=== PATIENT | male | born 1945 | race Caucasian/White ===

== ENCOUNTER 2024-06-09 21:23 | Inpatient (IN) | payer OTHER ==
--- NOTE | 2024-06-09 22:09 | RAD REPORT ---
EXAMINATION: ONE VIEW CHEST XR CLINICAL INDICATION: near syncope;SOB TECHNIQUE: Frontal chest projection is submitted. Examination is limited by patient positioning and t echnique. COMPARISON: No prior exam. FINDINGS: The lungs are well inflated and clear. The heart is upper limit of normal in size. No displaced fract ures identified. Cervical hardware plate. IMPRESSION: No acute intrathoracic abnormalities.
[2024-06-09] MEDS ORDERED: NA CHLORIDE 0.9% 500 ML ONE ×2 (22:12→23:01)
[2024-06-09 23:42] LABS: Absolute Eosinophils 0.2 K/uL (0-0.5); Absolute Lymphocytes (CBC) 0.5 K/uL (0.7-4.9); Absolute Monocytes 0.6 K/uL (0.1-1.3); Absolute Neutrophil 6.1 K/uL (1.8-8.0); Basophils % 0.5 % (0-1.3); Eosinophils % 2.2 % (0-4.4); Hematocrit 38.9 % (39.6-49.0); Lymphocytes % 6.8 % (15.3-44.8); MCH 31.4 pg (27.0-35.0); MCHC 33.5 g/dL (32.0-36.0); MCV 93.7 fL (80-100); MPV 8.6 fL (7.6-11.3); Neutrophils % 82.5 % (41.7-73.7); Nucleated Red Blood Cells % 0.2 % (0-0); Platelets 178 thou/uL (152-406); RBC Red Blood Cell Count 4.15 M/uL (4.33-5.43); Red Cell Distribution Width 15.4 % (12.1-15.2)
[2024-06-09 23:43] LABS: PT Prothrombin Time 14.6 SECONDS (9.4-12.5); Protime INR 1.31
[2024-06-10 01:19] LABS: AST/SGOT 13 U/L (15-37); Albumin 2.9 g/dL (3.4-5.0); Albumin/Globulin Ratio 0.9 (1.1-1.8); Alkaline Phosphatase 112 U/L (45-117); BUN Blood Urea Nitrogen 26 mg/dL (7-18); Bicarbonate 23 mEq/L (21-32); Bilirubin Direct 0.3 mg/dL (0-0.2); Bilirubin Indirect, Calculated 1.5 mg/dL (0.2-0.8); Bilirubin Total 1.8 mg/dL (0.2-1.0); Globulin 3.2 g/dL (2.3-3.5); Glomerular Filtration Rate 48 ml/min (=/>90); Glucose Level 239 mg/dL (74-106); NT PRO-BNP 1795 pg/mL (<450); Protein, Total 6.1 g/dL (6.4-8.2); Sodium Level 136 mEq/L (136-145); Troponin High Sensitivity 12.9 pg/mL (<58.9)
[2024-06-10 01:21] LABS: Renal Epithelial <5 /HPF (None Seen); Specific Gravity > 1.030 (1.005-1.030); Sqamous Epithelial None Seen /HPF (None Seen); Urine Bacteria None Seen /HPF (<20); Urine Bilirubin NEGATIVE (Negative); Urine Blood Trace (Negative); Urine Clarity Clear (Clear); Urine Color Light-Yellow (Yellow); Urine Culture Reflex Order NOT NEEDED; Urine Glucose 4+ (Over) (Negative); Urine Ketones NEGATIVE (Negative); Urine Microscopic Reflex YN ORDER UMIC; Urine Nitrite NEGATIVE (Negative); Urine Protein NEGATIVE (Negative); Urine RBC <5 /HPF (None Seen); Urine Urobilinogen Normal (Normal)
[2024-06-10 01:21] LABS: ALT/SGPT < 14 U/L (16-61)
--- NOTE | 2024-06-10 03:11 | RAD REPORT ---
EXAM: CT Head Without Intravenous Contrast CLINICAL HISTORY: Near syncope. TECHNIQUE: Axial computed tomography images of the head/brain without intravenous contrast. Sagittal and coron al reformatted images were created and reviewed. This CT exam was performed using one or more of the following dose reduction techniques: automated exposure control, adjustment of the mA and/or kV according to patient size, and/or use of iterative reconstruction technique. COMPARISON: No relevant prior studies available. FINDINGS: Brain: Mild to moderate cerebral atrophy and bilateral periventricular and subcortical white matter low attenuation most compatible with chronic microvascular angiopathy. No hemorrhage. Ventricles: Unremarkable. No ventriculomegaly. Bones/joints: Unremarkable. No acute fracture. Soft tissues: Unremarkable. Vasculature: There is atherosclerotic disease of the internal carotid arteries bilaterally. Sinuses: Unremarkable as visualized. No acute sinusitis. Mastoid air cells: Unremarkable as visualized. No mastoid effusion. IMPRESSION: 1. No acute intracranial or extra-axial abnormality. 2. Other findings as above. Electronically signed by: Ankit Dave MD 06/10/2024 02:44 AM [facility] Due to temporary technical issues with the PACS/YES.TAP reporting system, reports are being rosa d by the in-house radiologist without review as a courtesy to ensure prompt reporting the interpreting radiologist is fully responsible for the content of the report. Transcribed Date/Time: 06/10/2024 3:11 AM
--- NOTE | 2024-06-10 03:12 | RAD REPORT ---
EXAM: CT Chest Without Intravenous Contrast CLINICAL HISTORY: Near syncope, shortness of breath. TECHNIQUE: Axial computed tomography images of the chest without intravenous contrast. Sagittal and coronal re formatted images were created and reviewed. This CT exam was performed using one or more of the following dose reduction techniques: automated exposure control, adjustment of the mA and/or kV acc ording to patient size, and/or use of iterative reconstruction technique. COMPARISON: CTA Chest 06/07/2024. FINDINGS: Lungs: Unremarkable. No mass. No consolidation. Pleural space: Unremarkable. No pneumothorax. No significant effusion. Heart: The heart is mildly enlarged. Coronary artery calcification. No significant pericardial ef fusion. Bones/joints: Multilevel spondylosis. Lower cervical anterior fusion hardware. Partially visualized bilateral posterior fusion hardware at L2. Contiguous flowing ossification involving multiple consecutive vertebral bodies which can be seen in the setting of DISH. No acute fracture. No disl ocation. Soft tissues: Unremarkable. Vasculature: Mild atherosclerotic disease. No thoracic aortic aneurysm. Lymph nodes: Unremarkable. No enlarged lymph nodes. Liver: Subcentimeter left hepatic hypodensity which is too small to characterize. Gallbladder and bile ducts: Numerous tiny gallstones. No gallbladder wall thickening or pericholecy stic fluid. IMPRESSION: 1. No acute disease. 2. Other findings as above. Electronically signed by: Ankit Dave MD 06/10/2024 02:48 AM [facility] Due to temporary technical issues with the PACS/[employer] reporting system, reports are being rosa d by the in-house radiologist without review as a courtesy to ensure prompt reporting the interpreting radiologist is fully responsible for the content of the report. Transcribed Date/Time: 06/10/2024 3:11 AM
--- NOTE | 2024-06-10 06:22 | ER ---
Nurse's Notes [facility] Name: Sekou Couch Age: 78 yrs Sex: Male : 1945 Arrival Date: 06/09/2024 Time: 21:23 Bed 2 Private MD: Diagnosis: Dyspnea on exertion, Congestive Heart failure with exacerbation, Near syncope Presentation: 06/09 21:52 Chief complaint: sister states patient was discharged from [facility] today after an vc1 angiogram. Pt has had SOB for a few months that continue to get worse. When arriving at home he became more short of breath and almost passed out. His rectifying attendant states he needs to be seen by his hop worker, Dr. Leiva. Coronavirus screen: Client denies travel out of the [place] in the last 14 days. difficulty breathing, shortness of breath, Client presents with at least one sign or symptom that may indicate coronavirus-19. Ebola Screen: Patient negative for fever greater than or equal to 101.5 degrees Fahrenheit, and additional compatible Ebola Virus Disease symptoms Patient denies exposure to infectious person. Patient denies travel to an Ebola-affected area in the 21 days before illness onset. No symptoms or risks identified at this time. Initial Sepsis Screen: Does the patient meet any 2 criteria? No. Patient's initial sepsis screen is negative. Does the patient have a suspected source of infection? No. Patient's initial sepsis screen is negative. Risk Assessment: Do you want to hurt yourself or someone else? Patient reports no desire to harm self or others. Onset of symptoms was June 09, 2024. Care prior to arrival: None. Activity prior to arrival: near syncope. Mechanism of Injury: No Mechanism of Injury. Transition of care: patient was not received from another setting of care. 21:52 Method Of Arrival: Wheelchair vc1 21:52 Acuity: TOMASA 3 vc1 Triage Assessment: 22:05 General: Appears in no apparent distress. comfortable, Behavior is calm, cooperative, vc1 appropriate for age. Pain: Denies pain. EENT: No deficits noted. No signs and/or symptoms were reported regarding the EENT system. Neuro: Level of Consciousness is awake, alert, obeys commands, Oriented to person, place, time, situation, Appropriate for age. Cardiovascular: Capillary refill < 3 seconds Patient's skin is warm and dry. Respiratory: Reports shortness of breath at rest Onset: The symptoms/episode began/occurred few months, the patient has mild shortness of breath. GI: No deficits noted. No signs and/or symptoms were reported involving the gastrointestinal system. : No deficits noted. No signs and/or symptoms were reported regarding the genitourinary system. Derm: Skin is intact, is healthy with good turgor, Skin is dry, Skin is normal, Skin temperature is warm. Musculoskeletal: Circulation, motion, and sensation intact. Range of motion: intact in all extremities. Historical: - Allergies: 21:57 Sulfa (Sulfonamide Antibiotics); vc1 21:57 PENICILLINS; vc1 21:57 Fentanyl (Vomiting); vc1 - Home Meds: 21:57 metoprolol succinate 50 mg oral Tablet, Extended Release 24 hr [Active]; glimepiride 4 vc1 mg Oral tablet [Active]; spironolactone 25 mg Oral tablet [Active]; furosemide 40 mg Oral tablet [Active]; Januvia 100 mg oral tablet [Active]; Xarelto oral 25 mg tablet [Active]; Jardiance 25 mg oral tablet [Active]; isosorbide mononitrate 30 mg Oral Tablet, Extended Release 24 hr [Active]; atorvastatin 40 mg oral tablet [Active]; - PMHx: 21:57 Diabetes mellitus; Congestive heart failure; Hypercholesterolemia; vc1 - PSHx: 21:57 None; vc1 - Immunization history:: Client reports receiving the 2nd dose of the Covid vaccine, Flu vaccine is up to date. - Infectious Disease History:: Denies. - Social history:: Smoking status: Patient denies any tobacco usage or history of. Screenin:06 [facility] ED Fall Risk Assessment (Adult) History of falling in the last 3 months, vc1 including since admission No falls in past 3 months (0 pts) Confusion or Disorientation No (0 pts) Intoxicated or Sedated No (0 pts) Impaired Gait No (0 pts) Mobility Assist Device Used No (0 pt) Altered Elimination No (0 pt) Score/Fall Risk Level 0 - 2 = Low Risk Oriented to surroundings, Maintained a safe environment, Educated pt \T\ family on fall prevention, incl call for assistance when getting out of bed. Abuse screen: Denies threats or abuse. Nutritional screening: No deficits noted. Tuberculosis screening: No symptoms or risk factors identified. Assessment: 22:18 General: Appears in no apparent distress. Behavior is calm, cooperative. Pain: Denies al5 pain. Neuro: Level of Consciousness is awake, alert, obeys commands, Oriented to person, place, time, situation. Cardiovascular: Capillary refill < 3 seconds Patient's skin is warm and dry. Rhythm is atrial fibrillation. Respiratory: Airway is patent Respiratory effort is even, unlabored, Respiratory pattern is regular, symmetrical, Breath sounds are clear. Respiratory: Reports shortness of breath on exertion. GI: No signs and/or symptoms were reported involving the gastrointestinal system. : No signs and/or symptoms were reported regarding the genitourinary system. EENT: No signs and/or symptoms were reported regarding the EENT system. Derm: Skin is intact, Skin is pink, warm \T\ dry. normal. Musculoskeletal: No signs and/or symptoms reported regarding the musculoskeletal system. 23:24 Reassessment: Patient appears in no apparent distress at this time. No changes from al5 previously documented assessment. Patient and/or family updated on plan of care and expected duration. Pain level reassessed. Patient is alert, oriented x 3, equal unlabored respirations, skin warm/dry/pink. 06/10 01:20 Reassessment: Patient appears in no apparent distress at this time. No changes from al5 previously documented assessment. Patient and/or family updated on plan of care and expected duration. Pain level reassessed. Patient is alert, oriented x 3, equal unlabored respirations, skin warm/dry/pink. states he is no longer feeling short of breath, but states he is not sure about if he gets up if he will feel the same way. 02:47 Reassessment: Patient appears in no apparent distress at this time. No changes from al5 previously documented assessment. Patient and/or family updated on plan of care and expected duration. Pain level reassessed. Patient is alert, oriented x 3, equal unlabored respirations, skin warm/dry/pink. 04:02 Reassessment: Patient appears in no apparent distress at this time. No changes from al5 previously documented assessment. Patient and/or family updated on plan of care and expected duration. Pain level reassessed. Patient is alert, oriented x 3, equal unlabored respirations, skin warm/dry/pink. 05:26 Reassessment: Patient appears in no apparent distress at this time. No changes from al5 previously documented assessment. Patient and/or family updated on plan of care and expected duration. Pain level reassessed. Patient is alert, oriented x 3, equal unlabored respirations, skin warm/dry/pink. 06:32 Reassessment: Patient appears in no apparent distress at this time. No changes from al5 previously documented assessment. Patient and/or family updated on plan of care and expected duration. Pain level reassessed. Patient is alert, oriented x 3, equal unlabored respirations, skin warm/dry/pink. Vital Signs: 06/09 21:30 BP 99 / 69; Pulse 79; Resp 15; Pulse Ox 99% on R/A; al5 21:45 BP 104 / 53; Pulse 77; Resp 15; Pulse Ox 98% on R/A; al5 21:52 BP 113 / 74; Pulse 68; Resp 13; Temp 97.5; Pulse Ox 100% ; Weight 108.41 kg; Height 6 vc1 ft. 0 in. ; Pain 0/10; 22:00 BP 88 / 42; Pulse 69; Resp 16; Pulse Ox 99% on R/A; al5 22:50 BP 95 / 48; Pulse 62; Resp 16; Pulse Ox 100% on R/A; al5 23:15 BP 109 / 68; Pulse 61; Resp 16; Pulse Ox 99% ; dd2 23:30 BP 128 / 65; Pulse 62; Resp 17; Pulse Ox 100% on R/A; al5 06/10 00:00 BP 108 / 61; Pulse 58; Resp 17; Pulse Ox 100% on R/A; al5 00:23 BP 112 / 64; Pulse 67; Resp 16; Pulse Ox 99% ; dd2 00:30 BP 117 / 67; Pulse 52; Resp 19; Pulse Ox 99% on R/A; al5 00:45 BP 116 / 72; Pulse 60; Resp 13; Pulse Ox 99% on R/A; al5 01:00 BP 118 / 67; Pulse 60; Resp 13; Pulse Ox 100% on R/A; al5 01:15 BP 120 / 66; Pulse 57; Resp 14; Pulse Ox 99% on R/A; al5 01:30 BP 114 / 64; Pulse 59; Resp 16; Pulse Ox 100% on R/A; al5 01:45 BP 126 / 64; Pulse 50; Resp 19; Pulse Ox 98% on R/A; al5 02:48 BP 134 / 72; Pulse 51; Resp 17; Pulse Ox 98% on R/A; al5 03:00 BP 134 / 72; Pulse 54; Resp 19; Pulse Ox 99% on R/A; al5 03:30 BP 104 / 65; Pulse 58; Resp 13; Pulse Ox 100% on R/A; al5 04:00 BP 116 / 70; Pulse 56; Resp 17; Pulse Ox 99% on R/A; al5 04:30 BP 122 / 65; Pulse 52; Resp 15; Pulse Ox 99% on R/A; al5 05:00 BP 123 / 66; Pulse 50; Resp 18; Pulse Ox 98% on R/A; al5 05:30 BP 112 / 62; Pulse 57; Resp 14; Pulse Ox 100% on R/A; al5 06:00 BP 117 / 55; Pulse 50; Resp 18; Pulse Ox 100% on R/A; al5 06/09 21:52 Body Mass Index 32.41 (108.41 kg, 182.88 cm) vc1 21:52 Pain Scale: Adult vc1 [place] Coma Score: 06:22 Eye Response: spontaneous(4). Motor Response: obeys commands(6). Verbal Response: sp4 oriented(5). Total: 15. ED Course: 06/09 21:30 Patient arrived in ED. ra3 21:34 Marcos Del Cid PA is PHCP. cp 21:34 Andrew Banuelos MD is Attending Physician. cp 21:50 No provider procedures requiring assistance completed. Missed attempt(s): 22 gauge in al5 right antecubital area. 21:53 Inserted saline lock: 22 gauge in right forearm, using aseptic technique. Flushed with al5 10 mL NS. 21:57 Triage completed. vc1 22:04 XRAY Chest (1 view) In Process Unspecified. EDMS 22:04 Arm band placed on right wrist. vc1 22:05 Merly Moss, ROOPA is Primary Nurse. al5 22:06 Patient has correct armband on for positive identification. Placed in gown. Bed in low vc1 position. Call light in reach. external auditor on. Pulse ox on. NIBP on. 22:18 Provided Education on: plan of care. al5 22:36 Missed attempt(s): 22 gauge Bleeding controlled, band aid applied, catheter tip intact. oe 22:36 Inserted saline lock: 22 gauge in left hand, using aseptic technique. Blood collected. oe Flushed with 10 mL NS. 06/10 02:13 CT Head Brain wo Cont In Process Unspecified. EDMS 02:13 Thorax Wo Con In Process Unspecified. EDMS 06:20 Kinga Pond MD is Hospitalizing Provider. sp4 06:58 Patient admitted, IV remains in place. al5 Administered Medications: 06/09 22:17 Drug: NS 0.9% IV 500 ml IV at bolus once; to be given as a bolus over 30 minutes Route: al5 IV; Rate: bolus; Site: right forearm; 23:04 Follow up: Response: No adverse reaction; IV Status: Completed infusion; IV Intake: al5 500ml 23:04 Drug: NS 0.9% IV 500 ml 500 ml IV at 1 bolus once; to be given as a bolus over 30 al5 minutes Volume: 500 ml; Route: IV; Rate: 1 bolus; Site: right forearm; 06/10 01:14 Follow up: Response: No adverse reaction; IV Status: Completed infusion; IV Intake: al5 500ml Medication: 06/09 22:07 VIS not applicable for this client. vc1 Intake: 23:04 IV: 500ml; Total: 500ml. al5 06/10 01:14 IV: 500ml; Total: 1000ml. al5 Outcome: 06:20 Decision to Hospitalize by Provider. sp4 08:38 Admitted to [facility] [place] 08:38 Condition: stable 08:38 Instructed on the need for admit, 09:03 Patient left the ED. iw Signatures: Dispatcher [employer] EDMS Miguelina Beatty RN RN iw Marcos Del Cid PA PA cp Espinosa, Orlando oe Calcote, Vanessa, RN RN vc1 Rosie Perry RN RN cyn1 Andrew Banuelos MD MD sp4 Hayley Haskins ra3 Merly Moss RN RN al5 JONATHON BREWSTER RN RN dd2 Corrections: (The following items were deleted from the chart) 06/09 21:57 21:50 Chief complaint: vc1 vc1 : 21:57 Allergies: No Known Allergies; vc1 vc1 : 21:57 Home Meds: None; vc1 vc1
--- NOTE | 2024-06-10 06:22 | EDPHYS ---
Physician Documentation [facility] Name: Sekou Couch Age: 78 yrs Sex: Male : 1945 Arrival Date: 06/09/2024 Time: 21:23 Bed 2 Private MD: ED Physician Andrew Banuelos HPI: 06/09 21:50 This 78 yrs old Male presents to ER via Wheelchair with complaints of Breathing cp Difficulty. 21:50 The patient has shortness of breath at rest. Onset: The symptoms/episode began/occurred cp today. Associated signs and symptoms: Pertinent positives: near syncope, weakness, Pertinent negatives: chest pain, non-productive cough, productive cough, fever. 21:53 Patient reports discharge from [facility] today. Reports having cardiac cath done cp yesterday by DR Rosario and being diagnosed with coronary spasms. Wearing nitro patch. Reports shortness of breath and near-syncope today. Instructed to f/u with primary civil cad designer DR Kowalski for shortness of breath. Historical: - Allergies: 21:57 Sulfa (Sulfonamide Antibiotics); vc1 21:57 PENICILLINS; vc1 21:57 Fentanyl (Vomiting); vc1 - Home Meds: 21:57 metoprolol succinate 50 mg oral Tablet, Extended Release 24 hr [Active]; glimepiride 4 vc1 mg Oral tablet [Active]; spironolactone 25 mg Oral tablet [Active]; furosemide 40 mg Oral tablet [Active]; Januvia 100 mg oral tablet [Active]; Xarelto oral 25 mg tablet [Active]; Jardiance 25 mg oral tablet [Active]; isosorbide mononitrate 30 mg Oral Tablet, Extended Release 24 hr [Active]; atorvastatin 40 mg oral tablet [Active]; - PMHx: 21:57 Diabetes mellitus; Congestive heart failure; Hypercholesterolemia; vc1 - PSHx: 21:57 None; vc1 - Immunization history:: Client reports receiving the 2nd dose of the Covid vaccine, Flu vaccine is up to date. - Infectious Disease History:: Denies. - Social history:: Smoking status: Patient denies any tobacco usage or history of. ROS: 21:55 Constitutional: Negative for body aches, chills, fever, poor PO intake, cp 21:55 Cardiovascular: Negative for chest pain, palpitations, cp 21:55 Respiratory: Positive for shortness of breath, on exertion. Negative for cough, wheezing, 21:55 Abdomen/GI: Negative for abdominal pain, vomiting, diarrhea, constipation, cp 21:55 Neuro: Negative for altered mental status, headache, syncope, near syncope, 21:55 All other systems are negative, cp Exam: 22:00 Constitutional: The patient appears in no acute distress, alert, awake, cp non-diaphoretic, non-toxic, well developed, well nourished, obese, 22:00 Head/Face: Normocephalic, atraumatic. cp 22:00 Eyes: Periorbital structures: appear normal, Pupils: equal, round, and reactive to light and accomodation, Extraocular movements: intact throughout, Conjunctiva: normal, no exudate, no injection, Sclera: no appreciated abnormality, Lids and lashes: appear normal, bilaterally, 22:00 ENT: External ear(s): are unremarkable, Nose: is normal, Mouth: Lips: moist, Oral mucosa: pink and intact, moist, Posterior pharynx: is normal, airway is patent, no erythema, no exudate, 22:00 Chest/axilla: Inspection: normal, Palpation: is normal, no crepitus, no tenderness, 22:00 Cardiovascular: Rate: normal, Rhythm: irregular, Edema: is not appreciated, JVD: is not appreciated, 22:00 Respiratory: the patient does not display signs of respiratory distress, Respirations: normal, no use of accessory muscles, no retractions, labored breathing, is not present, Breath sounds: are clear throughout, no decreased breath sounds, no stridor, no wheezing, 22:20 ECG was reviewed by the Attending Physician. cp Vital Signs: 21:30 BP 99 / 69; Pulse 79; Resp 15; Pulse Ox 99% on R/A; al5 21:45 BP 104 / 53; Pulse 77; Resp 15; Pulse Ox 98% on R/A; al5 21:52 BP 113 / 74; Pulse 68; Resp 13; Temp 97.5; Pulse Ox 100% ; Weight 108.41 kg; Height 6 vc1 ft. 0 in. ; Pain 0/10; 22:00 BP 88 / 42; Pulse 69; Resp 16; Pulse Ox 99% on R/A; al5 22:50 BP 95 / 48; Pulse 62; Resp 16; Pulse Ox 100% on R/A; al5 23:15 BP 109 / 68; Pulse 61; Resp 16; Pulse Ox 99% ; dd2 23:30 BP 128 / 65; Pulse 62; Resp 17; Pulse Ox 100% on R/A; al5 06/10 00:00 BP 108 / 61; Pulse 58; Resp 17; Pulse Ox 100% on R/A; al5 00:23 BP 112 / 64; Pulse 67; Resp 16; Pulse Ox 99% ; dd2 00:30 BP 117 / 67; Pulse 52; Resp 19; Pulse Ox 99% on R/A; al5 00:45 BP 116 / 72; Pulse 60; Resp 13; Pulse Ox 99% on R/A; al5 01:00 BP 118 / 67; Pulse 60; Resp 13; Pulse Ox 100% on R/A; al5 01:15 BP 120 / 66; Pulse 57; Resp 14; Pulse Ox 99% on R/A; al5 01:30 BP 114 / 64; Pulse 59; Resp 16; Pulse Ox 100% on R/A; al5 01:45 BP 126 / 64; Pulse 50; Resp 19; Pulse Ox 98% on R/A; al5 02:48 BP 134 / 72; Pulse 51; Resp 17; Pulse Ox 98% on R/A; al5 03:00 BP 134 / 72; Pulse 54; Resp 19; Pulse Ox 99% on R/A; al5 03:30 BP 104 / 65; Pulse 58; Resp 13; Pulse Ox 100% on R/A; al5 04:00 BP 116 / 70; Pulse 56; Resp 17; Pulse Ox 99% on R/A; al5 04:30 BP 122 / 65; Pulse 52; Resp 15; Pulse Ox 99% on R/A; al5 05:00 BP 123 / 66; Pulse 50; Resp 18; Pulse Ox 98% on R/A; al5 05:30 BP 112 / 62; Pulse 57; Resp 14; Pulse Ox 100% on R/A; al5 06:00 BP 117 / 55; Pulse 50; Resp 18; Pulse Ox 100% on R/A; al5 06/09 21:52 Body Mass Index 32.41 (108.41 kg, 182.88 cm) vc1 21:52 Pain Scale: Adult vc1 [place] Coma Score: 06:22 Eye Response: spontaneous(4). Motor Response: obeys commands(6). Verbal Response: sp4 oriented(5). Total: 15. MDM: 06/09 21:34 Medical Screening Exam initiated cp 06/10 06:21 ED course: EXAM: CT Chest Without Intravenous Contrast CLINICAL HISTORY: Near syncope, sp4 shortness of breath. TECHNIQUE: Axial computed tomography images of the chest without intravenous contrast. Sagittal and coronal reformatted images were created and reviewed. This CT exam was performed using one or more of the following dose reduction techniques: automated exposure control, adjustment of the mA and/or kV according to patient size, and/or use of iterative reconstruction technique. COMPARISON: CTA Chest 06/07/2024. FINDINGS: Lungs: Unremarkable. No mass. No consolidation. Pleural space: Unremarkable. No pneumothorax. No significant effusion. Heart: The heart is mildly enlarged. Coronary artery calcification. No significant pericardial effusion. Bones/joints: Multilevel spondylosis. Lower cervical anterior fusion hardware. Partially visualized bilateral posterior fusion hardware at L2. Contiguous flowing ossification involving multiple consecutive vertebral bodies which can be seen in the setting of DISH. No acute fracture. No dislocation. Soft tissues: Unremarkable. Vasculature: Mild atherosclerotic disease. No thoracic aortic aneurysm. Lymph nodes: Unremarkable. No enlarged lymph nodes. Liver: Subcentimeter left hepatic hypodensity which is too small to characterize. Gallbladder and bile ducts: Numerous tiny gallstones. No gallbladder wall thickening or pericholecystic fluid. IMPRESSION: 1. No acute disease. 2. Other findings as above. . ED course: EXAM: CT Head Without Intravenous Contrast CLINICAL HISTORY: Near syncope. TECHNIQUE: Axial computed tomography images of the head/brain without intravenous contrast. Sagittal and coronal reformatted images were created and reviewed. This CT exam was performed using one or more of the following dose reduction techniques: automated exposure control, adjustment of the mA and/or kV according to patient size, and/or use of iterative reconstruction technique. COMPARISON: No relevant prior studies available. FINDINGS: Brain: Mild to moderate cerebral atrophy and bilateral periventricular and subcortical white matter low attenuation most compatible with chronic microvascular angiopathy. No hemorrhage. Ventricles: Unremarkable. No ventriculomegaly. Bones/joints: Unremarkable. No acute fracture. Soft tissues: Unremarkable. Vasculature: There is atherosclerotic disease of the internal carotid arteries bilaterally. Sinuses: Unremarkable as visualized. No acute sinusitis. Mastoid air cells: Unremarkable as visualized. No mastoid effusion. IMPRESSION: 1. No acute intracranial or extra-axial abnormality. 2. Other findings as above. . ED course: EXAMINATION: ONE VIEW CHEST XR CLINICAL INDICATION: near syncope;SOB TECHNIQUE: Frontal chest projection is submitted. Examination is limited by patient positioning and technique. COMPARISON: No prior exam. FINDINGS: The lungs are well inflated and clear. The heart is upper limit of normal in size. No displaced fractures identified. Cervical hardware plate. IMPRESSION: No acute intrathoracic abnormalities.. 06:22 Differential diagnosis: Anemia Anxiety Reaction asthma, Bronchitis CHF exacerbation, sp4 Chronic Obstructive Pulmonary Disease. Data reviewed: vital signs, nurses notes, old medical records, lab test result(s), EKG, radiologic studies, CT scan, plain films. 06/09 21:45 Order name: Basic Metabolic Panel; Complete Time: 06/10 01:28 Interpretation: Normal except: GLUC 239; BUN 26; CRE 1.46; GFR 48; CA 8.2. 06/09 21:45 Order name: CBC with Diff; Complete Time: 00: 06/10 00:19 Interpretation: Normal except: RBC 4.15; HGB 13.0; HCT 38.9; RDW 15.4; JERI% 82.5; LYM% cp 6.8; LYMA 0.5. 06/09 21:45 Order name: LFT's; Complete Time: 06/10 01:29 Interpretation: Normal except: AST 13; ALT < 14; BILIT 1.8; BILID 0.3; IBILI, CALC 1.5; cp TP 6.1; ALB 2.9; A/G 0.9. 06/09 21:45 Order name: Magnesium; Complete Time: 06/09 21:45 Order name: NT PRO-BNP; Complete Time: 06/09 21:45 Order name: PT-INR; Complete Time: 00: 06/09 21:45 Order name: Troponin HS; Complete Time: 06/09 21:45 Order name: Urinalysis w/ reflexes; Complete Time: 06/10 01:29 Interpretation: Normal except: Urine SG > 1.030; UGLUC 4+ (Over); UBLD Trace. 06/10 07:23 Order name: Urinalysis w/ reflexes EDMS 06/10 07:23 Order name: Basic Metabolic Panel EDMS 06/10 07:23 Order name: Basic Metabolic Panel EDMS 06/10 07:23 Order name: CBC with Automated Diff EDMS 06/10 07:23 Order name: CBC with Automated Diff EDMS 06/10 07:23 Order name: Magnesium EDMS 06/10 07:23 Order name: Magnesium EDMS 06/10 07:23 Order name: NT PRO-BNP EDMS 06/10 07:23 Order name: NT PRO-BNP EDMS 06/10 07:23 Order name: Troponin High Sensitivity EDMS 06/10 07:23 Order name: Troponin High Sensitivity EDMS 06/10 08:29 Order name: Glucose, Ancillary Testing EDMS 06/09 21:45 Order name: XRAY Chest (1 view); Complete Time: 22:12 cp 06/10 00:58 Interpretation: Report review. 06/10 01:17 Order name: CT Head Brain wo Cont; Complete Time: 05:58 cp 06/10 02:02 Order name: Thorax Wo Con; Complete Time: 05:58 EDMS 06/10 07:11 Order name: Echo with Doppler EDMS 06/09 21:45 Order name: EKG; Complete Time: 21:46 cp 06/10 07:11 Order name: CONS Physician Consult EDMO 06/09 21:45 Order name: Cardiac monitoring; Complete Time: 22:17 cp 06/09 21:45 Order name: EKG - Nurse/Tech; Complete Time: 22:17 cp 06/09 21:45 Order name: IV Saline Lock; Complete Time: 22:05 cp 06/09 21:45 Order name: Labs collected and sent; Complete Time: 22:57 cp 06/09 21:45 Order name: O2 Per Protocol; Complete Time: 22:05 cp 06/09 21:45 Order name: O2 Sat Monitoring; Complete Time: 22:05 cp 06/09 23:58 Order name: Misc. Order: recollect green top; Complete Time: 00:15 kmf 06/10 00:21 Order name: Vital Signs: please update to include blood pressure; Complete Time: 00:25 cp EC/12 22:20 Rate is 71 beats/min. Rhythm is irregular. QRS interval is prolonged at 114 msec. QT cp interval is normal. T waves are Inverted in lead aVL. Interpreted by me. Reviewed by me. Administered Medications: 22:17 Drug: NS 0.9% IV 500 ml IV at bolus once; to be given as a bolus over 30 minutes Route: al5 IV; Rate: bolus; Site: right forearm; 23:04 Follow up: Response: No adverse reaction; IV Status: Completed infusion; IV Intake: al5 500ml 23:04 Drug: NS 0.9% IV 500 ml 500 ml IV at 1 bolus once; to be given as a bolus over 30 al5 minutes Volume: 500 ml; Route: IV; Rate: 1 bolus; Site: right forearm; 06/10 01:14 Follow up: Response: No adverse reaction; IV Status: Completed infusion; IV Intake: al5 500ml Disposition: 06:18 Co-signature as Attending Physician, Andrew Banuelos MD I agree with the assessment sp4 and plan of care. I reviewed the patient's care provided by Advanced Practice Provider \T\ agree w/ the diagnosis \T\ care plan. I personally saw the pt \T\ performed a substantive portion of the visit, incldng all aspects of the (History/Exam/Medical Decision Making). Disposition Summary: 06/10/24 06:20 Hospitalization Ordered Notes: Hospitalization Status: Inpatient Admission sp4 Provider: Kinga Pond [facility] sp[facility] Condition: Stable sp4 Problem: new sp4 Symptoms: have improved sp4 Bed/Room Type: Standard sp4 Room Assignment: 231(06/10/24 08:28) Diagnosis - Dyspnea on exertion, Congestive Heart failure with exacerbation, Near syncope sp4 Forms: - Medication Reconciliation Form sp4 - SBAR form sp4 - Leadership Thank You Letter sp4 Signatures: Dispatcher [employer] EDMS Marcos Del Cid PA PA cp Botello, Elizabeth eb Calcote, Vanessa, RN RN 1 Andrew Banuelos MD MD sp4 Lisa Vital [facility] Merly Moss RN RN al5 Corrections: (The following items were deleted from the chart) 06/09 22:04 21:57 Allergies: No Known Allergies; vc1 vc1 22:04 21:57 Home Meds: None; vc1 vc1 06/10 01:16 12 21:50 Associated signs and symptoms: Pertinent positives: near syncope, Pertinent cp negatives: chest pain, non-productive cough, productive cough, fever, cp 06/10 02:01 01:17 Chest For PE Angio+CT.RAD.BRZ ordered. EDMS EDMS 08:28 06:20 sp4 eb 18:45 06:22 Constitutional: Negative for fever, chills, and weight loss, positive for dyspnea cp on exertion sp4 18:45 06:22 All other systems are negative, sp4 cp
[2024-06-10] MEDS ORDERED: ONDANSETRON 4 MG/2 ML VIAL IV PRN (07:09)
--- NOTE | 2024-06-10 07:23 | P.HP ---
Certification for Inpatient Patient admitted to: Observation With expected LOS: <2 Midnights <Ginger Robert - Last Filed: 06/10/24 21:32> Patient History Date of Service: 06/10/24 Reason for admission: Near syncopal episode History of Present Illness: 78-year-old male with a past medical history A-fib on chronic anticoagulation, Xarelto hypertension, hyperlipidemia, [place], PCIx1, coronary vasospasms, diabetes, presents to the emergency room with shortness of breath. He reports shortness of breath occasionally at rest, shortness of breath while standing, shortness of breath with exertion. He reports lightheaded, near fainting, worse with standing and exertion. He reports a recent coronary angiogram in [place] with Dr. Rosario was diagnosed with coronary vasospasms, was placed on a nitro patch, h ypotensive on arrival to the emergency room 99/69, 88/42, blood pressure report improved improved after removal of Nitropatch no intervention, bilateral lower extremity edema +1-2, he reports lower extremity edema is better after recently being diuresed in [place]. ER evaluation prolonged QT on EKG controlled rate 71 irregular rhythm. He denies cough, fever, no diaphoresis. He reports seeing pulmonology Dr. White, within normal workup. Was referred to cardiology for cardiology workup. Plan to admit for near syncopal episode, elevated BNP, acute on chronic heart failure, cardiology consulted, echo ordered - Past Medical/Surgical History -: Obstructive sleep apnea -: Diabetes type 2 [id number] -: Hypertension -: Hyperlipidemia -: Coronary vasospasm -: [place] PCI x 1 -: Congestive heart failure -: A-fib controlled rate -: Chronic anticoagulation -: Cataract surgery -: Lumbar fusion -: Neck surgery -: Knee surgery - Social History Smoking Status: Never smoker Alcohol use: Yes Place of Residence: Home <Ginger Robert - Last Filed: 06/10/24 21:32> Date of Service: 06/10/24 <Kinga Pond - Last Filed: 06/13/24 14:53> Allergies Penicillins Allergy (Verified 06/10/24 07:38) UNK Sulfa (Sulfonamide Antibiotics) Allergy (Verified 06/10/24 07:38) UNK fentanyl Adverse Reaction (Verified 06/10/24 07:38) Nausea/Vomiting morphine Adverse Reaction (Verified 06/10/24 07:48) Nausea/Vomiting Review of Systems 10-point ROS is otherwise unremarkable General: As per HPI <Ginger Robert - Last Filed: 06/10/24 21:32> Physical Examination - Physical Exam General: Alert, In no apparent distress, Oriented x3 HEENT: Atraumatic, Normocephalic Neck: Supple, 2+ carotid pulse no bruit Respiratory: Clear to auscultation bilaterally, Normal air movement Cardiovascular: Normal pulses, Normal S1 S2, Edema, Irregular heart rate/rhythm Capillary refill: <2 Seconds Gastrointestinal: Normal bowel sounds, Soft and benign Musculoskeletal: No clubbing, No swelling, Other (Generalized weakness) Integumentary: Other (Lower extremity edema) Neurological: Normal speech, Normal strength at 5/5 x4 extr, Cranial nerves 3-12 intact - Studies Laboratory Data (last 24 hrs) 06/10/24 06/09/24 06/09/24 00:49 22:35 22:35 WBC 7.40 Hgb 13.0 L Hct 38.9 L Plt Count 178 PT 14.6 H INR 1.31 Sodium 136 Potassium 4.0 BUN 26 H Creatinine 1.46 H Glucose 239 H Magnesium 2.0 Total Bilirubin 1.8 H AST 13 L ALT < 14 L Alkaline Phosphatase 112 <Ginger Robert - Last Filed: 06/10/24 21:32> Assessment and Plan - Problems (Diagnosis) (1) Acute heart failure Current Visit: Yes Status: Acute (2) Near syncope Current Visit: Yes Status: Acute (3) Coronary vasospasm Current Visit: Yes Status: Acute (4) Elevated brain natriuretic peptide (BNP) level Current Visit: Yes Status: Acute (5) Atrial fibrillation Current Visit: Yes Status: Acute (6) Dyspnea Current Visit: Yes Status: Acute (7) Prolonged QT interval Current Visit: Yes Status: Acute (8) Acute kidney injury superimposed on CKD Current Visit: Yes Status: Acute (9) Uncontrolled diabetes mellitus with hyperglycemia Current Visit: Yes Status: Acute Qualifiers: Diabetes mellitus type: type 2 Qualified Code(s): E11.65 - Type 2 diabetes mellitus with hyperglycemia (10) Hypertension Current Visit: Yes Status: Acute Qualifiers: Hypertension type: unspecified Qualified Code(s): I10 - Essential (primary) hypertension (11) Hyperlipidemia Current Visit: Yes Status: Acute Qualifiers: Hyperlipidemia type: unspecified Qualified Code(s): E78.5 - Hyperlipidemia, unspecified (12) Obstructive sleep apnea Current Visit: Yes Status: Chronic (13) Chronic anticoagulation Current Visit: Yes Status: Acute - Plan [facility] Cardiology consult, telemetry, EKG rate 71 rregular rhythm, with noted prolonged QT, avoid prolonged QT medication-Xarelto, Resume home Xarelto, Discontinue Nitropatch due to hypotension Echo ordered Elevated BNP, trend BNP, trend troponin Diuretics, antihypertensives added, resume home antilipid, Accu-Cheks, sliding scale insulin, Monitor kidney function, ELIE likely secondary to prerenal CHF Daily weight,I&O CPAP/BiPAP overnight Full code DVT Xarelto Diet diabetic, low-sodium Discharge Plan: Home - Advance Directives Does patient have a Living Will: No Does patient have a Durable POA for Healthcare: No - Code Status/Comfort Care Code Status: Full Code Critical Care: No Time Spent Managing Pts Care (In Minutes): 55 <Ginger Robert - Last Filed: 06/10/24 21:32> Date of Service: 06/10/24 Patient was seen and examined. Events of the last 24 hours have been noted. Spoke with with SUMMER regarding patient's clinical picture after evaluating and examining the patient independently. I performed a substantial part of the MDM during this patient's care today. I personally made or approved the documented management plan and acknowledge its risk of complications. I agree with the findings and documentation provided in the SUMMER's notes. Plan to do ankle x-rays in a.m.. Plan to continue with sotalol to control AFib. Patient admitted for inpatient hospitalization. <Kinga Pond - Last Filed: 06/13/24 14:53>
[2024-06-10] MEDS: INSULIN REGULAR (HUMAN) 100 UNIT/ML SQ SCH (07:30)
[2024-06-10] MEDS ORDERED: CODEINE 30MG/APAP 300MG TAB PO PRN (07:48)
[2024-06-10] MEDS: FUROSEMIDE 40 MG/4 ML VIAL IV ONE (08:30)
[2024-06-10] MEDS ORDERED: FUROSEMIDE 40 MG/4 ML VIAL ONE (08:39)
[2024-06-10] MEDS: ISOSORBIDE MONO SR 30 MG TAB PO SCH (08:51)
[2024-06-10] MEDS: SPIRONOLACTONE 25 MG TABLET PO SCH (08:51)
[2024-06-10 11:58] VITALS: BMI 32.4
[2024-06-10] MEDS ORDERED: GLUCAGON 1 MG/VIAL IM PRN (14:27)
[2024-06-10] MEDS ORDERED: D10W 125 ML IV PRN (14:27)
--- NOTE | 2024-06-10 14:49 | EKG ---
Test Date: 2024-06-09 Test Time: 22:13:06 Tray Service Worker: HAILEY MEASUREMENT RESULTS: Intervals: Rate: 71 RI: QRSD: 114 QT: 402 QTc: 436 [place]: P: RI: QRS: -33 T: 75 INTERPRETIVE STATEMENTS: Atrial fibrillation Left axis deviation Septal infarct, age undetermined Abnormal ECG No previous ECG available for comparison Electronically Signed On 06-10-24 14:48:35 BRICK STACKER by Rolf Aguila
--- NOTE | 2024-06-10 14:54 | P.CNS ---
Date of Consult: 06/10/24 Chief Complaint: Near syncopal episode History of Present Illness: Patient with PMH of AF, HFpEF, presented with worsening SOB and significant BOONE, denies chest pain, no palpitations, no syncope. Allergies Penicillins Allergy (Verified 06/10/24 07:38) UNK Sulfa (Sulfonamide Antibiotics) Allergy (Verified 06/10/24 07:38) UNK fentanyl Adverse Reaction (Verified 06/10/24 07:38) Nausea/Vomiting morphine Adverse Reaction (Verified 06/10/24 07:48) Nausea/Vomiting Home medications list reviewed: Yes Home Medications: Empagliflozin [Jardiance] 25 mg PO DAILY 06/10/24 Furosemide [Lasix] 40 mg PO DAILY 06/10/24 Isosorbide Mononitrate [Isosorbide Mononitrate ER] 60 mg PO DAILY 06/10/24 Nitroglycerin Patch [Transderm-Nitro 0.1MG/Hr Patch] 1 each TD DAILY 06/10/24 RX: Amlodipine Besylate 10 mg PO DAILY 06/10/24 RX: Atorvastatin Calcium 80 mg PO BEDTIME 06/10/24 RX: Glimepiride 4 mg PO DAILY 06/10/24 RX: Spironolactone 25 mg PO DAILY 06/10/24 Rivaroxaban [Xarelto] 20 mg PO DAILY 06/10/24 - Past Medical/Surgical History Diabetic: Yes -: Obstructive sleep apnea -: Diabetes type 2 [id number] -: Hypertension -: Hyperlipidemia -: Coronary vasospasm -: [place] PCI x 1 -: Congestive heart failure -: A-fib controlled rate -: Chronic anticoagulation -: Cataract surgery -: Lumbar fusion -: Neck surgery -: Knee surgery - Social History Alcohol use: Yes CD- Drugs: No Caffeine use: Yes Place of Residence: Home Review of Systems 10-point ROS is otherwise unremarkable Physical Examination Temp Pulse Resp BP Pulse Ox 97.4 F 64 16 100/56 L 97 06/10/24 12:00 06/10/24 12:00 06/10/24 12:00 06/10/24 12:00 06/10/24 12:00 General: Alert, In no apparent distress HEENT: Atraumatic, PERRLA, Mucous membr. moist/pink, EOMI, Sclerae nonicteric Neck: Supple, 2+ carotid pulse no bruit, No LAD, Without JVD or thyroid abnormality Respiratory: Clear to auscultation bilaterally, Normal air movement Cardiovascular: Edema, Irregular heart rate/rhythm Gastrointestinal: Normal bowel sounds, No tenderness Musculoskeletal: No tenderness Integumentary: No rashes Neurological: Normal gait, Normal speech, Normal tone, Normal affect Lymphatics: No axilla or inguinal lymphadenopathy Laboratory Data (last 24 hrs) 06/10/24 06/09/24 06/09/24 00:49 22:35 22:35 WBC 7.40 Hgb 13.0 L Hct 38.9 L Plt Count 178 PT 14.6 H INR 1.31 Sodium 136 Potassium 4.0 BUN 26 H Creatinine 1.46 H Glucose 239 H Magnesium 2.0 Total Bilirubin 1.8 H AST 13 L ALT < 14 L Alkaline Phosphatase 112 - Problems (1) Acute on chronic diastolic heart failure Current Visit: Yes Status: Acute Plan: Lasix 40 mg IV BID Monitor input and output and electrolytes patient outpatient meds (Toprol XL 50, aldactone 25, jardiance) continue Jardiance for now. (2) Atrial fibrillation Current Visit: Yes Status: Acute Plan: start patient on Sotalol 80 mg po BID (EKG after 3rd dose) JOSE DCCV on Thursday, if continue to be in AF Continue Eliquis 5 mg po BID
[2024-06-10] MEDS: RIVAROXABAN 20 MG TABLET PO SCH (17:26)
[2024-06-10] MEDS: FUROSEMIDE 40 MG TABLET PO SCH (17:26)
[2024-06-10] MEDS: SOTALOL HCL 80 MG TAB PO SCH (18:20)
[2024-06-10] MEDS: ATORVASTATIN 40 MG TAB PO SCH (20:08)
[2024-06-11 04:05] LABS: Specific Gravity 1.011 (1.005-1.030); Sqamous Epithelial None Seen /HPF (None Seen); Urine Bacteria None Seen /HPF (<20); Urine Bilirubin NEGATIVE (Negative); Urine Blood Trace (Negative); Urine Clarity Clear (Clear); Urine Color Light-Yellow (Yellow); Urine Culture Reflex Order NOT NEEDED; Urine Glucose 4+ (Over) (Negative); Urine Ketones NEGATIVE (Negative); Urine Microscopic Reflex YN ORDER UMIC; Urine Nitrite NEGATIVE (Negative); Urine Protein NEGATIVE (Negative); Urine RBC <5 /HPF (None Seen); Urine Urobilinogen Normal (Normal); Urine WBC <5 /HPF (<5)
[2024-06-11 05:31] LABS: Absolute Basophils 0.1 K/uL (0-0.5); Absolute Eosinophils 0.4 K/uL (0-0.5); Absolute Lymphocytes (CBC) 0.8 K/uL (0.7-4.9); Absolute Monocytes 0.7 K/uL (0.1-1.3); Absolute Neutrophil 5.2 K/uL (1.8-8.0); Basophils % 0.7 % (0-1.3); Eosinophils % 5.6 % (0-4.4); Hematocrit 38.6 % (39.6-49.0); Hemoglobin 13.1 g/dL (13.6-17.9); Lymphocytes % 10.5 % (15.3-44.8); MCH 31.6 pg (27.0-35.0); MCV 93.1 fL (80-100); MPV 8.2 fL (7.6-11.3); Monocytes % 9.5 % (3.3-12.3); Neutrophils % 73.7 % (41.7-73.7); Nucleated Red Blood Cells % 0.1 % (0-0); Platelets 157 thou/uL (152-406); RBC Red Blood Cell Count 4.15 M/uL (4.33-5.43); Red Cell Distribution Width 15.4 % (12.1-15.2)
[2024-06-11 05:53] LABS: Anion Gap 8.7 mEq/L (5.0-15.0); Magnesium 2.1 mg/dL (1.6-2.4); Potassium 3.7 mEq/L (3.5-5.1); Troponin High Sensitivity 16.8 pg/mL (<58.9)
[2024-06-11] MEDS: POTASSIUM CL SA 10 MEQ TAB PO ONE (09:19)
--- NOTE | 2024-06-11 15:03 | RAD REPORT ---
EXAMINATION: XR RIGHT ANKLE CLINICAL INDICATION: . R) ankle XRAY TECHNIQUE:Two view radiograph of the right ankle were obtained. COMPARISON: No prior exam. FINDINGS: Oblique fracture of the distal fibula. Small calcaneal spur. Mild soft tissue swelling.
[2024-06-11] MEDS ORDERED: SOTALOL HCL 80 MG TAB PO SCH (17:00)
[2024-06-11] MEDS: SOTALOL HCL 80 MG TAB PO SCH (17:59)
[2024-06-11] MEDS: ATORVASTATIN 40 MG TAB PO SCH (20:41)
--- NOTE | 2024-06-11 22:03 | P.PN ---
Subjective Date of Service: 06/11/24 Chief Complaint: Near syncopal episode Started on sotalol, will repeat EKG after third dose, reports dizziness, generalized weakness, shortness of breath with exertion <Ginger Robert - Last Filed: 06/11/24 22:05> Date of Service: 06/11/24 <Kinga Pond - Last Filed: 06/13/24 14:56> Review of Systems 10-point ROS is otherwise unremarkable General: As per HPI <Ginger Robert - Last Filed: 06/11/24 22:05> Physical Examination - Vital Signs Temperature: 98.0 F Blood Pressure: 113/55 Pulse: 59 Respirations: 16 Pulse Ox (%): 98 - Physical Exam General: Alert, Oriented x3, Mild distress HEENT: Normocephalic, PERRLA Neck: Supple, 2+ carotid pulse no bruit Respiratory: Diminished, Other (Shortness of breath with exertion) Cardiovascular: Normal pulses, Edema, Irregular heart rate/rhythm Capillary refill: <2 Seconds Gastrointestinal: Normal bowel sounds, Soft and benign Musculoskeletal: Other (weakness) Integumentary: No rashes, No breakdown Neurological: Normal speech, Sensation intact (u), Abnormal gait, Abnormal strength <Ginger Robert - Last Filed: 06/11/24 22:05> Assessment And Plan - Current Problems (Diagnosis) (1) Acute heart failure Current Visit: Yes Status: Acute (2) Near syncope Current Visit: Yes Status: Acute (3) Coronary vasospasm Current Visit: Yes Status: Acute (4) Elevated brain natriuretic peptide (BNP) level Current Visit: Yes Status: Acute (5) Atrial fibrillation Current Visit: Yes Status: Acute Qualifiers: Atrial fibrillation type: longstanding persistent Qualified Code(s): I48.11 - Longstanding persistent atrial fibrillation (6) Dyspnea Current Visit: Yes Status: Acute Qualifiers: Dyspnea type: dyspnea on exertion Qualified Code(s): R06.09 - Other forms of dyspnea (7) Prolonged QT interval Current Visit: Yes Status: Acute (8) Acute kidney injury superimposed on CKD Current Visit: Yes Status: Acute (9) Uncontrolled diabetes mellitus with hyperglycemia Current Visit: Yes Status: Acute Qualifiers: Diabetes mellitus type: type 2 Qualified Code(s): E11.65 - Type 2 diabetes mellitus with hyperglycemia (10) Hypertension Current Visit: Yes Status: Acute Qualifiers: Hypertension type: unspecified Qualified Code(s): I10 - Essential (primary) hypertension (11) Hyperlipidemia Current Visit: Yes Status: Acute Qualifiers: Hyperlipidemia type: unspecified Qualified Code(s): E78.5 - Hyperlipidemia, unspecified (12) Obstructive sleep apnea Current Visit: Yes Status: Chronic (13) Chronic anticoagulation Current Visit: Yes Status: Acute - Plan Admit to [facility] Cardiology consult, telemetry, Started on sotalol, repeat EKG after third dose, possible JOSE on Thursday if it does not convert with medication EKG rate 71 rregular rhythm, with noted prolonged QT, avoid prolonged QT medication-Xarelto, Resume home Xarelto, Discontinue Nitropatch due to hypotension Echo ordered Elevated BNP, trend BNP, trend troponin Diuretics, antihypertensives added, resume home antilipid, Accu-Cheks, sliding scale insulin, Monitor kidney function, ELIE likely secondary to prerenal CHF Daily weight,I&O CPAP/BiPAP overnight Full code DVT Xarelto Diet diabetic, low-sodium Disposition acute inpatient rehab - Code Status/Comfort Care Code Status: Full Code Critical Care: No Time Spent Managing PTS Care (In Minutes): 35 <Ginger Robert - Last Filed: 06/11/24 22:05> Date of Service: 06/11/24 Patient was seen and examined. Events of the last 24 hours have been noted. Spoke with with SUMMER regarding patient's clinical picture after evaluating and examining the patient independently. I performed a substantial part of the MDM during this patient's care today. I personally made or approved the documented management plan and acknowledge its risk of complications. I agree with the findings and documentation provided in the SUMMER's notes. Ankle x-ray with distal fibula fracture. Above the malleolus. Ankle fracture boot placed. Sotalol given again today but no change in rhythm. Heart rate has slowed down into the 50s. Continue with sotalol and JOSE with cardioversion on Thursday if patient does not convert to a sinus rhythm. <Kinga Pond - Last Filed: 06/13/24 14:56>
[2024-06-12 05:14] LABS: Absolute Basophils 0.1 K/uL (0-0.5); Absolute Eosinophils 0.5 K/uL (0-0.5); Absolute Lymphocytes (CBC) 0.8 K/uL (0.7-4.9); Absolute Monocytes 0.7 K/uL (0.1-1.3); Absolute Neutrophil 5.9 K/uL (1.8-8.0); Basophils % 0.9 % (0-1.3); Eosinophils % 5.8 % (0-4.4); Hematocrit 38.9 % (39.6-49.0); Hemoglobin 13.3 g/dL (13.6-17.9); Lymphocytes % 9.6 % (15.3-44.8); MCH 31.8 pg (27.0-35.0); MCHC 34.3 g/dL (32.0-36.0); MCV 92.7 fL (80-100); MPV 8.1 fL (7.6-11.3); Monocytes % 9.3 % (3.3-12.3); Neutrophils % 74.4 % (41.7-73.7); Nucleated Red Blood Cells % 0.1 % (0-0); Platelets 160 thou/uL (152-406); RBC Red Blood Cell Count 4.19 M/uL (4.33-5.43); Red Cell Distribution Width 15.3 % (12.1-15.2)
[2024-06-12 05:36] LABS: AST/SGOT 11 U/L (15-37); Albumin 2.8 g/dL (3.4-5.0); Albumin/Globulin Ratio 0.9 (1.1-1.8); Alkaline Phosphatase 113 U/L (45-117); Anion Gap 8.1 mEq/L (5.0-15.0); BUN Blood Urea Nitrogen 20 mg/dL (7-18); Bicarbonate 26 mEq/L (21-32); Bilirubin Total 1.7 mg/dL (0.2-1.0); Globulin 3.1 g/dL (2.3-3.5); Glomerular Filtration Rate 62 ml/min (=/>90); Glucose Level 178 mg/dL (74-106); NT PRO-BNP 1962 pg/mL (<450); Potassium 4.1 mEq/L (3.5-5.1); Protein, Total 5.9 g/dL (6.4-8.2); Sodium Level 138 mEq/L (136-145)
[2024-06-12 05:39] LABS: ALT/SGPT < 14 U/L (16-61)
[2024-06-12] MEDS ORDERED: RIVAROXABAN 20 MG TABLET PO SCH (09:00)
[2024-06-12] MEDS: HOME MED 1 EA UNK (Empagliflozin [Jardiance] 25 MG Tablet) PO SCH (09:00)
[2024-06-12] MEDS: FUROSEMIDE 40 MG TABLET PO SCH (09:00)
--- NOTE | 2024-06-12 11:55 | CON ---
Reason For Consultation: Right fibular fracture. History Of Present Illness: Mr. Couch is an 78-year-old gentleman who suffers from atrial fibrilla tion, shortness of breath, who sustained a twisting injury to his right ankle. This resulted in obli que, nondisplaced or minimally displaced right distal fibular fracture. The mortise is well maintain ed. He will need a fracture boot and touchdown weightbearing, physical therapy. He will follow up a t 3 weeks with a repeat x-ray, at that point. If he did show some initial stages of healing, we will allow him to weightbear as tolerated. CM/MODL Voice ID: [id number] Report ID: [id number]
--- NOTE | 2024-06-12 13:32 | P.PN ---
Date of Service: 06/12/24 Subjective Date of Service: 06/11/24 Chief Complaint: Near syncopal episode N.p.o. after midnight for JOSE for cardiology to eval in am Review of Systems 10-point ROS is otherwise unremarkable General: As per HPI Physical Examination - Vital Signs Reviewed - Physical Exam General: Alert, Oriented x3, HEENT: Normocephalic, PERRLA Neck: Supple, 2+ carotid pulse no bruit Respiratory: Diminished, Other (Shortness of breath with exertion with exertion Cardiovascular: Normal pulses, Edema, Irregular heart rate/rhythm Capillary refill: <2 Seconds Gastrointestinal: Normal bowel sounds, Soft and benign Musculoskeletal: Other (weakness) right ankle pain with range of motion Integumentary: No rashes, No breakdown Neurological: normal speech, Normal strength at 5/5 x4 extr, Cranial nerves 3-12 intact Assessment And Plan - Current Problems (Diagnosis) (1) Acute heart failure unknown ejection fraction Current Visit: Yes Status: Acute (2) Near syncope Current Visit: Yes Status: Acute (3) Coronary vasospasm Current Visit: Yes Status: Acute (4) Elevated brain natriuretic peptide (BNP) level Current Visit: Yes Status: Acute (5) Atrial fibrillation Current Visit: Yes Status: Acute Qualifiers: Atrial fibrillation type: longstanding persistent Qualified Code(s): I48.11 - Longstanding persistent atrial fibrillation (6) Dyspnea Current Visit: Yes Status: Acute Qualifiers: Dyspnea type: dyspnea on exertion Qualified Code(s): R06.09 - Other forms of dyspnea (7) Prolonged QT interval Current Visit: Yes Status: Acute (8) Acute kidney injury superimposed on CKD Current Visit: Yes Status: Acute (9) Uncontrolled diabetes mellitus with hyperglycemia Current Visit: Yes Status: Acute Qualifiers: Diabetes mellitus type: type 2 Qualified Code(s): E11.65 - Type 2 diabetes mellitus with hyperglycemia (10) Hypertension Current Visit: Yes Status: Acute Qualifiers: Hypertension type: unspecified Qualified Code(s): I10 - Essential (primary) hypertension (11) Hyperlipidemia Current Visit: Yes Status: Acute Qualifiers: Hyperlipidemia type: unspecified Qualified Code(s): E78.5 - Hyperlipidemia, unspecified (12) Obstructive sleep apnea Current Visit: Yes Status: Chronic (13) Chronic anticoagulation Current Visit: Yes Status: Acute (14) distal fibula oblique fracture of the right ankle FINDINGS: Oblique fracture of the distal fibula. Small calcaneal spur. Mild soft tissue swelling. PT to eval for DME, orth consult in am, plan for Ortho boot, PT eval for an ambulation, gait training - Plan Admit to [facility] Cardiology consult, telemetry, Started on sotalol, repeat EKG after third dose, possible JOSE on Thursday if it does not convert with medication EKG rate 71 irregular rhythm, with noted prolonged QT, avoid prolonged QT medication-Xarelto, Resume home Xarelto, Discontinue Nitropatch due to hypotension Echo ordered Elevated BNP, trend BNP, trend troponin Diuretics, antihypertensives added, resume home antilipid, Accu-Cheks, sliding scale insulin, Monitor kidney function, ELIE likely secondary to prerenal CHF Daily weight,I&O CPAP/BiPAP overnight Full code DVT Xarelto Diet diabetic, low-sodium Disposition acute inpatient rehab - Code Status/Comfort Care Code Status: Full Code Critical Care: No Time Spent Managing PTS Care (In Minutes): 35 <Ginger Robert - Last Filed: 06/12/24 13:33> Patient was seen and examined. Events of the last 24 hours have been noted. Spoke with with SUMMER regarding patient's clinical picture after evaluating and examining the patient independently. I performed a substantial part of the MDM during this patient's care today. I personally made or approved the documented management plan and acknowledge its risk of complications. I agree with the findings and documentation provided in the SUMMER's notes. Ankle x-ray with distal fibula fracture. Above the malleolus. Ankle fracture boot placed. Sotalol given again today but no change in rhythm. Heart rate has slowed down into the 50s. Continue with sotalol and JOSE with cardioversion in AM if not converting to a sinus rhythm. <Kinga Pond - Last Filed: 06/13/24 14:57>
[2024-06-13 05:23] LABS: Absolute Basophils 0.1 K/uL (0-0.5); Absolute Eosinophils 0.4 K/uL (0-0.5); Absolute Lymphocytes (CBC) 0.6 K/uL (0.7-4.9); Absolute Monocytes 0.6 K/uL (0.1-1.3); Absolute Neutrophil 5.6 K/uL (1.8-8.0); Basophils % 0.8 % (0-1.3); Lymphocytes % 8.8 % (15.3-44.8); MCH 30.8 pg (27.0-35.0); MCHC 32.6 g/dL (32.0-36.0); MCV 94.5 fL (80-100); MPV 8.9 fL (7.6-11.3); Monocytes % 8.9 % (3.3-12.3); Neutrophils % 76.5 % (41.7-73.7); Nucleated Red Blood Cells % 0.3 % (0-0); Platelets 143 thou/uL (152-406); RBC Red Blood Cell Count 4.55 M/uL (4.33-5.43); Red Cell Distribution Width 15.3 % (12.1-15.2)
[2024-06-13 05:38] LABS: AST/SGOT 17 U/L (15-37); Albumin 2.8 g/dL (3.4-5.0); Albumin/Globulin Ratio 0.9 (1.1-1.8); Alkaline Phosphatase 111 U/L (45-117); Anion Gap 7.7 mEq/L (5.0-15.0); BUN Blood Urea Nitrogen 15 mg/dL (7-18); Bicarbonate 25 mEq/L (21-32); Bilirubin Total 1.9 mg/dL (0.2-1.0); Globulin 3.2 g/dL (2.3-3.5); Glomerular Filtration Rate 76 ml/min (=/>90); Glucose Level 130 mg/dL (74-106); NT PRO-BNP 2666 pg/mL (<450); Potassium 4.7 mEq/L (3.5-5.1); Sodium Level 135 mEq/L (136-145)
[2024-06-13 05:41] LABS: ALT/SGPT < 14 U/L (16-61)
[2024-06-13] MEDS: NA CHLORIDE 0.9% 500 ML ONE (10:11)
[2024-06-13] MEDS ORDERED: propofoL 200 MG/20 ML VIAL IV ONE (10:33)
[2024-06-13] MEDS ORDERED: LIDOCAINE 1% MPF 5 ML VIAL ONE (11:08)
--- NOTE | 2024-06-13 11:30 | P.PN ---
Subjective Date of Service: 06/13/24 Chief Complaint: Near syncopal episode Subjective: No new changes, No C/O voiced, Tolerating diet, Ambulating, Improving Review of Systems 10-point ROS is otherwise unremarkable Physical Examination - Vital Signs Temperature: 97.8 F Blood Pressure: 121/56 Pulse: 73 Respirations: 16 Pulse Ox (%): 98 - Physical Exam General: Alert, In no apparent distress HEENT: Atraumatic, PERRLA, EOMI Neck: Supple, JVD not distended Respiratory: Clear to auscultation bilaterally, Normal air movement Cardiovascular: Regular rate/rhythm, Normal S1 S2 Gastrointestinal: Normal bowel sounds, No tenderness Musculoskeletal: No tenderness Integumentary: No rashes Neurological: Normal speech, Normal tone, Normal affect Lymphatics: No axilla or inguinal lymphadenopathy - Studies Medications List Reviewed: Yes Assessment And Plan - Current Problems (Diagnosis) (1) Acute on chronic diastolic heart failure Current Visit: Yes Status: Acute Plan: Lasix 40 mg PO daily continue Aldactone 25 mg daily, continue Jardiance patient outpatient meds (Toprol XL 50, aldactone 25, jardiance) (2) Atrial fibrillation Current Visit: Yes Status: Acute Plan: s/p JOSE DCCV Lower Sotalol to 40 mg po BID Continue Xarelto 20 mg daily Qualifiers: Atrial fibrillation type: longstanding persistent Qualified Code(s): I48.11 - Longstanding persistent atrial fibrillation
--- NOTE | 2024-06-13 16:08 | P.PN ---
Date of Service: 06/13/24 Subjective Awake, awaiting cardioversion Feeling well, reports SOB when ambulating to the bathroom ROS 10 point ROS as noted above, otherwise negative Physical Exam General: Alert and Oriented x3, NAD, conversing well HEENT: Normocephalic, PERRLA Neck: Supple, 2+ carotid pulse no bruit Respiratory: Diminished, Other (Shortness of breath with exertion with exertion Cardiovascular: Normal pulses, Edema, Irregular heart rate/rhythm (Afib) Capillary refill: <2 Seconds Gastrointestinal: Normal bowel sounds, Soft and benign Musculoskeletal: Other (weakness) right ankle pain with range of motion Integumentary: No rashes, No breakdown Neurological: normal speech, Normal strength at 5/5 x4 extr, Cranial nerves 3-12 intact Vitals Reviewed Problem list Symptomatic Afib with history of persistent A-fib and chronic anticoagulation Acute on chronic diastolic heart failure Prolonged QT interval Coronary spasm Elevated BNP ELIE-resolved Diabetes mellitus with hyperglycemia HTN HLD TANI Assessment and Plan Symptomatic Afib with history of persistent A-fib and chronic anticoagulation Acute on chronic diastolic heart failure Prolonged QT interval Coronary spasm Elevated BNP -JOSE DCCV today, successful -Lower sotalol to 40 mg p.o. twice daily -Continue Xarelto 20 mg daily -Lasix 40 mg daily -Continue Aldactone 25 mg and Jardiance -Continuous telemetry -Echo ordered -Daily weights with strict I's and O's -CPAP and BiPAP overnight -Serial troponin 12.9/16.8 ELIE-resolved -BUN/creatinine 15/1, GFR 76 Diabetes mellitus with hyperglycemia -Accu-Chek with sliding scale insulin -Serum glucose 130 HTN HLD TANI -Continue home medications Distal fibula oblique fracture of right ankle -Physical therapy -Ortho boot DVT ppx xarelto Code status Dispo inpatient rehab
[2024-06-13] MEDS: SOTALOL HCL 80 MG TAB PO SCH (17:22)
[2024-06-13] MEDS: SPIRONOLACTONE 25 MG TABLET PO SCH (17:22)
--- NOTE | 2024-06-14 01:04 | OP ---
Date of Procedure: 06/13/2024 Surgeon: Rolf Aguila Procedure Performed: Synchronized JOSE cardioversion. Indication For Procedure: Atrial fibrillation. Complications: None. Estimated Blood Loss: Less than 50 cc. Sedation: Done by Anesthesia team. Description Of Procedure: After risks, benefits, and alternatives were explained to the patient, pat ient agreed to proceed with the procedure and signed informed consent. The patient was brought back to the OR. Time-out was performed. Sedation was administered by Anesthesia team. JOSE probe was ins erted, images were obtained, and then JOSE probe was pulled out. Next, synchronized cardioversion was done with 200 joules. The patient stayed in atrial fibrillation, so another synchronized cardiovers ion was done with 300 joules. Patient responded this time and converted back into sinus rhythm. Assessment And Plan: 1.Atrial fibrillation, status post JOSE cardioversion. 2.The plan will be to continue Xarelto. 3.Lower sotalol to 40 mg p.o. b.i.d. YOLANDA/PRATIK Voice ID: [id number] Report ID: [id number]
[2024-06-14 04:15] VITALS: O2SAT 97
--- NOTE | 2024-06-14 11:19 | P.PN ---
Subjective Date of Service: 06/14/24 Chief Complaint: Near syncopal episode Subjective: No new changes, No C/O voiced, Tolerating diet, Ambulating, Improving Review of Systems 10-point ROS is otherwise unremarkable Physical Examination - Vital Signs Temperature: 97.9 F Blood Pressure: 133/65 Pulse: 76 Respirations: 14 Pulse Ox (%): 99 - Physical Exam General: Alert, In no apparent distress HEENT: Atraumatic, PERRLA, EOMI Neck: Supple, JVD not distended Respiratory: Clear to auscultation bilaterally, Normal air movement Cardiovascular: Regular rate/rhythm, Normal S1 S2 Gastrointestinal: Normal bowel sounds, No tenderness Musculoskeletal: No tenderness Integumentary: No rashes Neurological: Normal speech, Normal tone, Normal affect Lymphatics: No axilla or inguinal lymphadenopathy - Studies Medications List Reviewed: Yes Assessment And Plan - Current Problems (Diagnosis) (1) Acute on chronic diastolic heart failure Current Visit: Yes Status: Acute Plan: Lasix 40 mg PO daily continue Aldactone 25 mg daily, continue Jardiance patient outpatient meds (Toprol XL 50, aldactone 25, jardiance) (2) Atrial fibrillation Current Visit: Yes Status: Acute Plan: s/p JOSE DCCV continue Sotalol 40 mg po BID Continue Xarelto 20 mg daily Patient will need outpatient event monitor on follow up as he is having first degree AV block with sinus pauses. Qualifiers: Atrial fibrillation type: longstanding persistent Qualified Code(s): I48.11 - Longstanding persistent atrial fibrillation
--- NOTE | 2024-06-14 11:30 | ECHO ---
HEIGHT: 6 ft 0 in WEIGHT: 239 lb 0 oz DATE OF STUDY: 06/10/[address]: Ginger Robert [employer]-[place]iel 2-DIMENSIONAL: YES M.MODE: YES DOPPLER: YES COLOR FLOW: YES TDS: NO PORTABLE: YES DEFINITY: NO BUBBLE STUDY: NO DIAGNOSIS: DYSPNEA, NEAR SYNCOPE CARDIAC HISTORY: CATHERIZATION: SURGERY: PROSTHETIC VALVE: PACEMAKER: MEASUREMENTS (cm) DIASTOLIC (NORMALS) SYSTOLIC (NORMALS) IVSd 1.1 (0.6-1.2) LA Diam 3.3 (1.9-4.0) LVEF 60-65% LVIDd 4.1 (3.5-5.7) LVIDs 2.6 (2.0-3.5) %FS 37% LVPWd 1.1 (0.6-1.2) Ao Diam 3.6 (2.0-3.7) 2 DIMENSIONAL ASSESSMENT: RIGHT ATRIUM: NORMAL LEFT ATRIUM: MILDLY DILATED RIGHT VENTRICLE: NORMAL LEFT VENTRICLE: NORMAL TRICUSPID VALVE: MILD TRICUSPID REGURGITATION MITRAL VALVE: NORMAL PULMONIC VALVE: NORMAL AORTIC VALVE: NORMAL, TRACE AORTIC REGURGITATION PERICARDIAL EFFUSION: NONE AORTIC ROOT: NORMAL LEFT VENTRICULAR WALL MOTION: NORMAL. DOPPLER/COLOR FLOW: UNABLE TO ESTIMATE DUE TO ARRHYTHMIA. COMMENTS: 1. NORMAL LEFT VENTRICULAR SYSTOLIC FUNCTION. LEFT VENTRICULAR EJECTION FRACTION 60-65%. NORMAL WALL MOTION. 2. UNABLE TO ESTIMATE DIASTOLIC FUNCTION DUE TO ARRHYTHMIA. 3. MILDLY ELEVATED FILLING PRESSURE. RIGHT ATRIAL PRESSURE 5-10 mmHg. TECHNOLOGIST: LIVIER MARCUS [facility]
--- NOTE | 2024-06-14 12:20 | P.DS ---
Admission Date: 06/10/24 Discharge Date: 06/14/24 Disposition: TRANSFER TO INPATIENT REHAB Discharge Condition: GOOD Reason for Admission: Near syncopal episode Brief History of Present Illness: Diagnosis Symptomatic Afib with history of persistent A-fib and chronic anticoagulation Acute on chronic diastolic heart failure Prolonged QT interval Coronary spasm Elevated BNP ELIE-resolved Diabetes mellitus with hyperglycemia HTN HLD TANI HPI 06/10/2024 Sekou Couch is an 78-year-old male with a past medical history A-fib on chronic anticoagulation, Xarelto hypertension, hyperlipidemia, [place], PCIx1, coronary vasospasms, diabetes, presents to the emergency room with shortness of breath. He reports shortness of breath occasionally at rest, shortness of breath while standing, shortness of breath with exertion. He reports lightheaded, near fainting, worse with standing and exertion. He reports a recent coronary angiogram in [place] with Dr. Rosario was diagnosed with coronary vasospasms, was placed on a nitro patch, hypotensive on arrival to the emergency room 99/69, 88/42, blood pressure report improved improved after removal of Nitropatch no intervention, bilateral lower extremity edema +1-2, he reports lower extremity edema is better after recently being diuresed in [place]. ER evaluation prolonged QT on EKG controlled rate 71 irregular rhythm. He denies cough, fever, no diaphoresis. He reports seeing pulmonology Dr. White, within normal workup. Was referred to cardiology for cardiology workup. Plan to admit for near syncopal episode, elevated BNP, acute on chronic heart failure, cardiology consulted, echo ordered Hospital Course: Sekou Couch is a pleasant 78-year-old male with a past medical history significant for [text] who was admitted to the [facility] on 06/10/2024 for symptomatic atrial fibrillation. Sekou presented to the ED with chief complaint of shortness of breath, lightheadedness, and near fainting. CT head, chest x-ray, and CT chest with no acute findings. While in the ED he was found to be hypotensive while wearing a Nitropatch. EKG showing controlled rate with atrial fibrillation and prolonged QT. Cardiology was consulted and successful cardioversion performed 06/13. Adjustments have been made to medication and have been tolerated during this admission. He was diuresed with adequate urine output, remained on room air, denies chest pain. Dr. Aguila has cleared him for discharge and follow-up in his office to continue evaluation with event heart monitor. Sekou reports twisting his right ankle, ankle x-ray reports " Oblique fracture of the distal fibula. Small calcaneal spur. Mild soft tissue swelling", Dr. Avina consulted and recommended orthopedic fracture boot for while healing. He will benefit from inpatient rehab to continue physical therapy using touchdown weightbearing. Follow-up with Dr. Avina in 3 weeks. On 06/14/2024, Sekou was seen on morning rounds and deemed medically stable for discharge to inpatient rehab. Sekou was discharged with instructions to schedule follow-up appointments with PCP and Dr. Aguila. Physical Exam General: AAO x3, NAD, conversing well HEENT: Normocephalic, PERRLA Neck: Supple, 2+ carotid pulse no bruit Respiratory: Clear BBS, on RA, symmetrical chest wall movement Cardiovascular: Normal pulses, Edema, normal sinus rhythm Capillary refill: <2 Seconds Gastrointestinal: Normal bowel sounds, Soft and benign on palpation Musculoskeletal: Other (weakness) right ankle pain with range of motion Integumentary: No rashes, No breakdown Neurological: normal speech, Normal strength at 5/5 x4 extr, Cranial nerves 3-12 intact Vital Signs/Physical Exam: Temp Pulse Resp BP Pulse Ox 97.9 F 76 14 133/65 99 06/14/24 11:19 06/14/24 11:19 06/14/24 11:19 06/14/24 11:19 06/14/24 11:19 Laboratory Data at Discharge: WBC 7.30 thou/uL (4.3-10.9) 06/13/24 04:57 Hgb 14.0 g/dL (13.6-17.9) 06/13/24 04:57 Hct 43.0 % (39.6-49.0) 06/13/24 04:57 Plt Count 143 thou/uL (152-406) L 06/13/24 04:57 PT 14.6 SECONDS (9.4-12.5) H 06/09/24 22:35 INR 1.31 06/09/24 22:35 Sodium 135 mEq/L (136-145) L 06/13/24 04:57 Potassium 4.7 mEq/L (3.5-5.1) D 06/13/24 04:57 BUN 15 mg/dL (7-18) 06/13/24 04:57 Creatinine 1.00 mg/dL (0.70-1.30) 06/13/24 04:57 Glucose 130 mg/dL (74-106) H 06/13/24 04:57 Magnesium 2.1 mg/dL (1.6-2.4) 06/11/24 05:00 Total Bilirubin 1.9 mg/dL (0.2-1.0) H 06/13/24 04:57 AST 17 U/L (15-37) 06/13/24 04:57 ALT < 14 U/L (16-61) L 06/13/24 04:57 Alkaline Phosphatase 111 U/L (45-117) 06/13/24 04:57 Home Medications: Atorvastatin Calcium 80 mg PO BEDTIME 06/10/24 Empagliflozin [Jardiance] 25 mg PO DAILY 06/10/24 Furosemide [Lasix] 40 mg PO DAILY 06/10/24 Glimepiride 4 mg PO DAILY 06/10/24 Rivaroxaban [Xarelto] 20 mg PO DAILY 06/10/24 Spironolactone 25 mg PO DAILY 06/10/24 Isosorbide Mononitrate [Isosorbide Mononitrate ER] 30 mg PO DAILY 30 Days #30 tab 06/14/24 Sotalol HCl [Betapace*] 40 mg PO BID 6AM 6PM 30 Days #60 tab 06/14/24 Spironolactone [Aldactone*] 25 mg PO DAILY 30 Days #30 tab 06/14/24 New Medications: Spironolactone [Aldactone*] 25 mg PO DAILY 30 Days #30 tab Sotalol HCl [Betapace*] 40 mg PO BID 6AM 6PM 30 Days #60 tab Isosorbide Mononitrate [Isosorbide Mononitrate ER] 30 mg PO DAILY 30 Days #30 tab Physician Discharge Instructions: 1. Please call and schedule a follow-up appointment with your PCP in 3-5 days - Please follow-up with your PCP for medication refills/adjustments 2. Please call and schedule a follow-up appointment with Dr. Aguila in 3-5 days -Please review the medication changes and additions -You will need an event heart monitor discussed at follow up appointment 3. Continue heart healthy diet 4. activity restrictions, do not lift greater than 10 pounds for three days 5. Return to the ED if symptoms worsen Medications prescribed aldactone 25 mg Daily sotalol 40 mg twice daily Imdur 30 mg daily Continue medications Toprol LX 50 mg Daily Jardiance 25 mg daily lasix 40 mg Daily xarelto 20 mg daily Discontinued norvasc, may need restarted at follow up visit with PCP or cardiology Followup: Rolf Aguila MD [ACTIVE - CAN ADMIT] - Félix Mendez MD [Primary Care Provider] -
[2024-06-14 12:33] VITALS: TEMP 97.8
--- NOTE | 2024-06-14 13:50 | TEE ---
TRANSESOPHAGEAL ECHOCARDIOGRAM REPORT CARDIOLOGY DEPARTMENT DATE OF STUDY: 06/13/2024 HEIGHT: 6'0 WEIGHT: 240 LBS DIAGNOSIS: ATRIAL FIBRILLATION COMMENTS: 1. NORMAL LEFT ATRIAL APPENDAGE. NO THROMBUS SEEN. 2. MODERATELY DILATED LEFT ATRIUM. 3. MILD MITRAL REGURGITATION. TECHNOLOGIST: ROLF OLIVO
[2024-06-14 16:50] VITALS: BP 118/70
--- NOTE | 2024-06-16 11:37 | EKG ---
Test Date: 2024-06-13 Test Time: 12:18:22 Leather Roller: TWIN MEASUREMENT RESULTS: Intervals: Rate: 73 MN: 360 QRSD: 116 QT: 400 QTc: 440 [place]: P: 64 MN: 360 QRS: -47 T: 57 INTERPRETIVE STATEMENTS: Sinus rhythm with 1st degree AV block Left anterior fascicular block Left ventricular hypertrophy with QRS widening Cannot rule out Septal infarct, age undetermined Abnormal ECG Compared to ECG 06/09/2024 22:13:06 First degree AV block now present Left anterior fascicular block now present Left ventricular hypertrophy now present Atrial fibrillation no longer present Left-axis deviation no longer present Myocardial infarct finding still present Electronically Signed On 06-16-24 11:36:25 PARK KEEPER by Rolf Aguila
== END 2024-06-14 17:00 | DRG 291 ==
LOC: ER 21:23 → ERHOLD 06-10 07:06 → 2ND 06-10 08:35 → OBSVTOIN 06-10 20:38
PROVIDERS: ADMIT Hospitalist; ATTEND Internal Medicine
PROC: B24BZZ4 Ultrasonography of Heart with Aorta, Transesophageal (ICD-10-PCS; principal; 2024-06-13)
PROC: 5A2204Z Restoration of Cardiac Rhythm, Single (ICD-10-PCS; 2024-06-13)
DX: I13.0 Hypertensive heart and chronic kidney disease with heart failure and stage 1 through stage 4 chronic kidney disease, or unspecified chronic kidney disease (principal); I50.33 Acute on chronic diastolic (congestive) heart failure; N17.9 Acute kidney failure, unspecified; I48.11 Longstanding persistent atrial fibrillation; N18.9 Chronic kidney disease, unspecified; E11.22 Type 2 diabetes mellitus with diabetic chronic kidney disease; E11.65 Type 2 diabetes mellitus with hyperglycemia; E78.00 Pure hypercholesterolemia, unspecified; I95.9 Hypotension, unspecified; G47.33 Obstructive sleep apnea (adult) (pediatric); S82.431A Displaced oblique fracture of shaft of right fibula, initial encounter for closed fracture; R94.31 Abnormal electrocardiogram [ECG] [EKG]; I25.2 Old myocardial infarction; Z88.0 Allergy status to penicillin; Z88.5 Allergy status to narcotic agent; Z88.2 Allergy status to sulfonamides; Z79.84 Long term (current) use of oral hypoglycemic drugs; Z79.01 Long term (current) use of anticoagulants; Z79.899 Other long term (current) drug therapy
CPT/HCPCS: 01922; 36415; 70450; 71045; 71250; 80048; 80053; 80076; 81001; 82947; 83735; 83880; 84484; 85025; 85610; 92960; 93005; 93306; 93312; 96360; 96361; 97110; 97112; 97116; 97161; 97530; 99285; G0378; J1940; J2003; J2704; J7040

== ENCOUNTER 2024-06-14 14:40 | Inpatient (IN) | payer OTHER ==
[2024-06-14 17:13] VITALS: BMI 32.9
[2024-06-14] MEDS ORDERED: D10W 125 ML IV PRN (17:45)
[2024-06-14] MEDS ORDERED: GLUCAGON 1 MG/VIAL IM PRN (17:45)
[2024-06-14] MEDS: RIVAROXABAN 20 MG TABLET PO SCH (18:25)
[2024-06-14] MEDS: SOTALOL HCL 80 MG TAB PO SCH (18:25)
[2024-06-14 20:44] LABS: Sqamous Epithelial <5 /HPF (None Seen); Urine Bacteria None Seen /HPF (<20); Urine Bilirubin NEGATIVE (Negative); Urine Blood Negative (Negative); Urine Clarity Clear (Clear); Urine Color Light-Yellow (Yellow); Urine Culture Reflex Order NOT NEEDED; Urine Glucose 1+ (Negative); Urine Ketones NEGATIVE (Negative); Urine Micro Reflex YN NO BILL MICROSCOPIC; Urine Mucus Slight /HPF (None Seen); Urine Nitrite NEGATIVE (Negative); Urine Protein NEGATIVE (Negative); Urine RBC <5 /HPF (None Seen); Urine Urobilinogen Normal (Normal); Urine WBC <5 /HPF (<5)
[2024-06-14] MEDS: ATORVASTATIN 80 MG TAB PO SCH (20:49)
[2024-06-14] MEDS: INSULIN REGULAR (HUMAN) 100 UNIT/ML SQ SCH (20:51)
[2024-06-15 06:18] LABS: Absolute Eosinophils 0.3 K/uL (0-0.5); Absolute Lymphocytes (CBC) 0.6 K/uL (0.7-4.9); Absolute Monocytes 0.8 K/uL (0.1-1.3); Basophils % 0.6 % (0-1.3); Eosinophils % 3.5 % (0-4.4); Hematocrit 39.4 % (39.6-49.0); Hemoglobin 13.3 g/dL (13.6-17.9); MCH 31.4 pg (27.0-35.0); MCHC 33.8 g/dL (32.0-36.0); MCV 92.8 fL (80-100); MPV 8.6 fL (7.6-11.3); Monocytes % 9.8 % (3.3-12.3); Neutrophils % 78.1 % (41.7-73.7); Nucleated Red Blood Cells % 0.1 % (0-0); Platelets 178 thou/uL (152-406); RBC Red Blood Cell Count 4.24 M/uL (4.33-5.43); Red Cell Distribution Width 15.2 % (12.1-15.2)
[2024-06-15 06:35] LABS: Albumin 2.9 g/dL (3.4-5.0); Anion Gap 6.7 mEq/L (5.0-15.0); Potassium 4.7 mEq/L (3.5-5.1); Prealbumin 16.4 mg/dL (20-40)
[2024-06-15] MEDS: Empagliflozin [Jardiance] 25 MG Tablet *PT OWN MED PO SCH (08:00)
[2024-06-15] MEDS: FUROSEMIDE 40 MG TABLET PO SCH (08:51)
[2024-06-15] MEDS: SPIRONOLACTONE 25 MG TABLET PO SCH (08:51)
[2024-06-15] MEDS: ISOSORBIDE MONO SR 30 MG TAB PO SCH (08:52)
[2024-06-15] MEDS: GLIMEPIRIDE 2 MG TABLET PO SCH (08:52)
[2024-06-15] MEDS ORDERED: RIVAROXABAN 20 MG TABLET PO SCH (17:00)
--- NOTE | 2024-06-15 21:17 | HP ---
Date of Admission: 06/14/2024 Time Of Service: 9 a.m. Chief Complaint: "I broke a bone in my legs." History Of Present Illness: Mr. Couch is an 78-year-old patient with obstructive sleep apnea, diab etes mellitus type 2, coronary vasospasm, congestive heart failure, atrial fibrillation, rate control led on anticoagulation, who presents to emergency department with shortness of breath and dyspnea on exertion in addition to near fainting spells. Evaluation identified acute on chronic diastolic conge stive heart failure with coronary vasospasms. In addition, he had his first elevated BNP, atrial fib rillation, prolonged QT, and chronic kidney disease with acute exacerbation. Furthermore, he had unc ontrolled diabetes, hypertension. While hospitalized, he was found to have distal fibular fracture w ith an oblique fracture. Treatment consisted of a boot and his additional workup. He received a tra nsesophageal echocardiogram. He was managed with daily weights, strict Is and Os, CPAP and BiPAP. B lood sugar sliding scale with sugar checks a.c. and h.s. The Orthopedic Service again did recommend a boot and he is to put at touchdown weightbearing status. He was evaluated by the Therapy Service a nd found to require min assist for ordinary transfers, ambulation with a rolling walker, required min assist to be able to maintain touchdown weightbearing status, also for transfers for dressing upper and lower body as well as donning and doffing the right leg boot. As a result, he is determined to b e appropriate candidate for inpatient rehabilitation and was admitted for physical and occupational t herapy. Past Medical History: As noted above. Past Surgical History: Lumbar fusion, neck and knee surgery, cataract surgery in addition to obstruc tive sleep apnea, diabetes mellitus type 2, hypertension, dyslipidemia, coronary vasospasm, congestiv e heart failure, acute on chronic renal injury, atrial fibrillation with rate control on anticoagulat ion. X-ray/imaging: Chest x-ray on 05/30 shows no acute intrathoracic abnormalities. On 06/10, chest CT scan showed no acute disease. On head CT scan on 06/10, no acute intracranial abnormalities. The x- ray on 06/11/2024 of the right lower extremity shows an oblique fracture of the distal fibula, small calcaneal spur, and mild soft tissue swelling. An echocardiogram on 06/10 shows normal left ventricu lar systolic function, left ventricular ejection fraction 60% to 65%, normal wall motion, mild elevat ed pressure, right atrial pressure around 5 to 10. EKG on 06/09/2024 shows atrial fibrillation, left axis deviation, septal infarct age undetermined. Allergies: PENICILLIN, SULFA, FENTANYL, AND MORPHINE. Medications: Atorvastatin 80 mg at bedtime, Lasix 40 mg daily, Amaryl 4 mg daily with breakfast, he has a mild insulin sliding scale, Imdur 30 mg daily, Xarelto 20 mg daily, Betapace 40 mg twice daily, Aldactone 25 mg daily. Family History: Noncontributory. Social History: No alcohol, tobacco, or IV drug use. The patient says his is currently in skil led nursing and he is hoping to be able to get out of rehab and be able to take care of his . Larry stout is now on rehab this Thursday, today is Thursday. Current Level Of Functioning: Eating is setup assistance. Grooming, setup assistance. Moderate ass istance for bathing. Contact guard for upper body dressing, moderate assistance for lower body dress ing and donning and doffing a boot or footwear. Toilet transfers, moderate assistance. Wheelchair t ransfer, moderate assistance. Ambulation, moderate assistance covering 55 feet. Physical Examination: Vital Signs: Blood pressure 120/64, pulse 58, respiratory rate 18, temperature 98.0, oxygen saturati on 97%. Weight 243 pounds, height 6 feet, BMI 33.0. General: Mr. Couch is sitting in a chair beside bed. He completed 1 session of therapy in the [facility]. HEENT: He is normocephalic, atraumatic. Sclerae anicteric. Oropharynx pink and moist. Neck: Supple. Chest: Clear. Heart: Irregular. Abdomen: Soft, mildly obese. Extremities: The right lower extremity is in a boot, where he has the distal fracture as identified on the left side. No significant edema. Neurological: He has diffuse weakness, but more so on the right lower extremity. Of course, there i s pain limiting his ability to exert force in the distal right lower extremity. There is also a touc hdown weightbearing status. Laboratory Studies: White blood cell count 7.7, hemoglobin 13.3, platelets are 178. Sodium 134, pot assium 4.7, chloride 104, carbon dioxide 28, BUN 20, creatinine 1.12, glucose ranged from 147 to 176, hemoglobin A1c 7.1, calcium 8.9, magnesium 2.0, albumin 2.9, prealbumin 16.4. Urinalysis shows 1+ g lucose, 5 to 10 hyaline casts, otherwise unremarkable. Rehab And Medical Assessment And Plan: Mr. Couch is an 78-year-old patient, admitted to the [facility] ent rehabilitation unit with impairment category 14, cardiac. His impairment group code is 09, cardi ac. Etiologic diagnosis, symptomatic atrial fibrillation. Additional comorbidities include oblique distal fracture of the right fibula. In addition, atrial fibrillation, on long-term anticoagulation, high risk of pulmonary embolus from possible thrombus, decreased mobility, decreased physical functi oning, diabetes mellitus, obstructive sleep apnea, mild class 1 obesity. Plan: He will have physical and occupational therapy 3 hours a day, 5 of 7 days. We will continue X arelto 20 mg daily for atrial fibrillation, Aldactone 20 mg daily for fluid management for CHF risk r eduction, Betapace for heart rate control that will be 40 mg twice daily, Imdur 30 mg daily also for chest pain and heart rate control, Amaryl 4 mg daily with breakfast for diabetes control, Lasix on luís abi as well for fluid management, Lipitor 80 mg at bedtime for dyslipidemia and have physical and occ upational therapy, 3 hours a day, 5 of 7 days. Comorbidities That Are Impacting Rehabilitation: Mr. Couch is a high dosage of Xarelto 20 mg daily and he has a risk of falling given the boot on the right and prior fall with fracture. Fall precaut ions to be adhered to at all times. Gait belt with wheelchair in tow when he is ambulating with a ro lling walker. If need be, bed alarm, chair alarm may be put in place. In addition, obstructive slee p apnea may put him at increased risk of stroke. He is obviously on Xarelto. He does have an increa sed risk of PUBLIC SERVICES ASSISTANT hemorrhage that has been negative on CT scan and will be watched closely for and if n eed be, the patient will have to be transferred for higher level of care if there is evidence of any intracerebral bleeding. Rehab Specific Plan: Mr. Couch will have physical and occupational therapy, 3 hours a day, 5 of 7 days, to improve his ability to transfer from bed to a chair to a rolling walker, to mobilize to the restroom, go on and off the toilet, in and out of the shower, and will work on tub transfer bench. A lso to be able to perform activities of daily living, to dress upper and lower body, and donning and doffing of his boot on the right and his footwear. If need be, Speech will work with him if there ar e cognitive issues and issues of swallowing which are not apparent at this time. Mr. Couch has a good understanding of the process of admission to the inpatient rehabilitation [facility] and how he will benefit from physical and occupational therapy. He will have 24 hours a day, 7 days a week skilled rehabilitation and nursing, daily physician evaluation and management, and social services analyst evaluation and management for discharge planning, home equipment, and followup, and continu e therapy after his discharge. If need be, additional help will be sought from the Hospitalist José angel, Orthopedic Service, and Cardiology Service as well. Barriers To Discharge: As noted, he does have the right boot with distal spiral fracture as noted in the tibia and his touchdown weightbearing status. It will be difficult for him to be able to go esthela e which he says he is planning to go home to help himself and his who is currently in skilled nu rsing. He himself may have to go to a longer term facility for the healing to take place prior to go ing home. The plan however is for him to be able to go home and function as independently as possibl e and safely as possible in addition to having his . Length Of Stay: About 10 to 12 days. Disposition: Back home with Home Health continuing therapy. Prognosis: Good. Code Status: Full code. Rehab Specific Goals: 1.Become independent with upper and lower body dressing, donning and doffing of boot and footwear. 2.Independently transfer from bed to chair to toilet to shower and back and forth. 3.Independently perform all activities of daily living. 4.Independently mobilize a wheelchair 250 feet. 5.He might have a difficult time mobilizing with a rolling walker, but at least 50 feet with modifie d independence for household distances and will work on going up and down at least 5 steps with bilat eral handrails as independently as possible. Also to continue performing cognitive functioning indep endently. The above goals were reviewed with Mr. Couch and he is in agreement. By signing this document, I acknowledge I personally performed a full physical examination on Mr. Federica manjarrez no later than 24 hours after his admission to the inpatient rehabilitation facility and determin ed that he is able to tolerate the above course of treatment at an intensive level for a reasonable p eriod of time. A detailed individualized plan of care for him will be completed by hospital day 4 ba sed on the preadmission screen, history and physical, and therapy evaluations. HOSSEIN Voice ID: [id number]
[2024-06-16] MEDS: NA CHLORIDE 0.9% 500 ML IV ONE (12:10)
[2024-06-16] MEDS ORDERED: ACETAMINOPHEN 325 MG TABLET PO PRN (13:44)
[2024-06-16] MEDS: DOCUSATE NA/SENNA CONC 1 TAB PO PRN (19:10)
[2024-06-16] MEDS: INSULIN REGULAR (HUMAN) 100 UNIT/ML SQ SCH (19:11)
[2024-06-16] MEDS: ENSURE ENLIVE 237 ML CAN PO SCH (19:11)
[2024-06-17 06:07] LABS: Anion Gap 7.9 mEq/L (5.0-15.0); Magnesium 2.1 mg/dL (1.6-2.4); Potassium 3.9 mEq/L (3.5-5.1)
[2024-06-17] MEDS: ISOSORBIDE MONO SR 30 MG TAB PO SCH (08:00)
[2024-06-17] MEDS: FUROSEMIDE 40 MG TABLET PO SCH (08:00)
[2024-06-17] MEDS: SPIRONOLACTONE 25 MG TABLET PO SCH (08:00)
[2024-06-17] MEDS: ONDANSETRON 4 MG (ODT) TAB PO PRN (09:52)
--- NOTE | 2024-06-17 13:48 | P.RH.PN ---
Estimated Length of Stay: 15 Expected Discharge Date: 06/24/24 Discharge Disposition Plan: Home Family Support: Yes Snf Goal: Mobility, Transfers, Self Care Vital Signs: Last Vital Signs Temp 96.8 F 06/17/24 08:30 Pulse 58 06/17/24 11:02 Resp 12 06/17/24 08:30 BP 110/64 06/17/24 11:02 Pulse Ox 97 06/17/24 08:30 Laboratory: Laboratory Last Values WBC 7.70 thou/uL (4.3-10.9) 06/15/24 05:44 RBC 4.24 M/uL (4.33-5.43) L 06/15/24 05:44 Hgb 13.3 g/dL (13.6-17.9) L 06/15/24 05:44 Hct 39.4 % (39.6-49.0) L 06/15/24 05:44 MCV 92.8 fL (80-100) 06/15/24 05:44 MCH 31.4 pg (27.0-35.0) 06/15/24 05:44 MCHC 33.8 g/dL (32.0-36.0) 06/15/24 05:44 RDW 15.2 % (12.1-15.2) 06/15/24 05:44 Plt Count 178 thou/uL (152-406) 06/15/24 05:44 MPV 8.6 fL (7.6-11.3) 06/15/24 05:44 Neutrophils % 78.1 % (41.7-73.7) H 06/15/24 05:44 Lymphocytes % 8.0 % (15.3-44.8) L 06/15/24 05:44 Monocytes % 9.8 % (3.3-12.3) 06/15/24 05:44 Eosinophils % 3.5 % (0-4.4) 06/15/24 05:44 Basophils % 0.6 % (0-1.3) 06/15/24 05:44 Absolute Neutrophils 6.0 K/uL (1.8-8.0) 06/15/24 05:44 Absolute Lymphocytes 0.6 K/uL (0.7-4.9) L 06/15/24 05:44 Absolute Monocytes 0.8 K/uL (0.1-1.3) 06/15/24 05:44 Absolute Eosinophils 0.3 K/uL (0-0.5) 06/15/24 05:44 Absolute Basophils 0.0 K/uL (0-0.5) 06/15/24 05:44 Sodium 137 mEq/L (136-145) 06/17/24 05:30 Potassium 3.9 mEq/L (3.5-5.1) 06/17/24 05:30 Chloride 108 mEq/L (98-107) H 06/17/24 05:30 Carbon Dioxide 25 mEq/L (21-32) 06/17/24 05:30 Anion Gap 7.9 mEq/L (5.0-15.0) 06/17/24 05:30 BUN 19 mg/dL (7-18) H 06/17/24 05:30 Creatinine 0.94 mg/dL (0.70-1.30) 06/17/24 05:30 Est GFR (CKD-EPI) 82 ml/min (=/>90) L 06/17/24 05:30 Glucose 77 mg/dL (74-106) 06/17/24 05:30 POC Glucose 72 mg/dL (65-120) 06/17/24 07:01 Hemoglobin A1c 7.1 % (4.2-6.3) H 06/15/24 05:44 Calcium 9.0 mg/dL (8.5-10.1) 06/17/24 05:30 Magnesium 2.1 mg/dL (1.6-2.4) 06/17/24 05:30 Albumin 2.9 g/dL (3.4-5.0) L 06/15/24 05:44 Prealbumin 16.4 mg/dL (20-40) L 06/15/24 05:44 Urine Color Light-yellow (Yellow) 06/14/24 20:15 Urine Clarity Clear (Clear) 06/14/24 20:15 Urine pH 5.0 (5.0-7.0) 06/14/24 20:15 Ur Specific [place] 1.010 (1.005-1.030) 06/14/24 20:15 Glucose (UA)(Auto) 1+ (Negative) H 06/14/24 20:15 Urine Ketones Negative (Negative) 06/14/24 20:15 Urine Blood Negative (Negative) 06/14/24 20:15 Urine Nitrite Negative (Negative) 06/14/24 20:15 Urine Bilirubin Negative (Negative) 06/14/24 20:15 Urine Urobilinogen Normal (Normal) 06/14/24 20:15 Ur Leukocyte Esterase Negative Tony/uL (Negative) 06/14/24 20:15 Urine RBC <5 /HPF (None Seen) 06/14/24 20:15 Urine WBC <5 /HPF (<5) 06/14/24 20:15 Ur Squamous Epith Cells <5 /HPF (None Seen) 06/14/24 20:15 Urine Bacteria None seen /HPF (<20) 06/14/24 20:15 Hyaline Casts 5-10 /LPF (None Seen) H 06/14/24 20:15 Urine Mucus Slight /HPF (None Seen) 06/14/24 20:15 Urine Culture Reflexed Not needed 06/14/24 20:15 Urine Total Protein Negative (Negative) 06/14/24 20:15 Weight: 243 lb Wound Present: No Physician Update: Acetylene Cylinder Packing Mixer saw patient and made adjustments in BM meds. CGA with RW 50' and 50% weight bearing status. WC 250' with supervision. Nausea today with BP 91/53, pulse 102 while standing and walking. Will order KUB. Needs a bedside commode. With OT met 1 STG and no LTG. Transfers with CGA not keeping weight off right foot. Will get 2 view x-ray of the right foot. Summary: Patient's care plan and terminal operations manager goals have been reviewed and revised as necessary. Please see the Rehabilitation Signature page for all necessary signatures.
--- NOTE | 2024-06-17 14:17 | P.CNS ---
Date of Consult: 06/17/24 Chief Complaint: Hypotension History of Present Illness: Patient with PMH of diastolic heart failure, atrial fibrillation s/p recent JOSE DCCV, is in rehab now, cardiology consulted for low BP, patient report feeling dizzy on occasions and got no apatite, denies any other cardiac symptoms. Allergies Penicillins Allergy (Verified 06/14/24 17:20) UNK Sulfa (Sulfonamide Antibiotics) Allergy (Verified 06/14/24 17:20) UNK fentanyl Adverse Reaction (Verified 06/14/24 17:20) Nausea/Vomiting morphine Adverse Reaction (Verified 06/14/24 17:20) Nausea/Vomiting Home medications list reviewed: Yes Home Medications: RX: Atorvastatin Calcium 80 mg PO BEDTIME 06/10/24 RX: Empagliflozin [Jardiance] 25 mg PO DAILY 06/10/24 RX: Furosemide [Lasix] 40 mg PO DAILY 06/10/24 RX: Glimepiride 4 mg PO DAILY 06/10/24 RX: Rivaroxaban [Xarelto] 20 mg PO DAILY 06/10/24 RX: Isosorbide Mononitrate [Isosorbide Mononitrate ER] 30 mg PO DAILY 30 Days #30 tab 06/14/24 RX: Sotalol HCl [Betapace*] 40 mg PO BID 6AM 6PM 30 Days #60 tab 06/14/24 RX: Spironolactone [Aldactone*] 25 mg PO DAILY 30 Days #30 tab 06/14/24 - Past Medical/Surgical History Diabetic: Yes -: Obstructive sleep apnea -: Diabetes type 2 [id number] -: Hypertension -: Hyperlipidemia -: Coronary vasospasm -: [place] PCI x 1 -: Congestive heart failure -: A-fib controlled rate -: Chronic anticoagulation -: Cataract surgery -: Lumbar fusion -: Neck surgery -: Knee surgery - Family History Father Medical History: Hypertension Mother Medical History: Hypertension - Social History Alcohol use: Yes CD- Drugs: No Caffeine use: Yes Place of Residence: Home Review of Systems 10-point ROS is otherwise unremarkable Physical Examination Temp Pulse Resp BP Pulse Ox 96.8 F 58 12 110/64 97 06/17/24 08:30 06/17/24 11:02 06/17/24 08:30 06/17/24 11:02 06/17/24 08:30 General: Alert, In no apparent distress HEENT: Atraumatic, PERRLA, Mucous membr. moist/pink, EOMI, Sclerae nonicteric Neck: Supple, 2+ carotid pulse no bruit, No LAD, Without JVD or thyroid abnormality Respiratory: Clear to auscultation bilaterally, Normal air movement Cardiovascular: Regular rate/rhythm, Normal S1 S2 Gastrointestinal: Normal bowel sounds, No tenderness Musculoskeletal: No tenderness Integumentary: No rashes Neurological: Normal gait, Normal speech, Normal tone, Normal affect Lymphatics: No axilla or inguinal lymphadenopathy Laboratory Data (last 24 hrs) 06/17/24 05:30 Sodium 137 Potassium 3.9 BUN 19 H Creatinine 0.94 Glucose 77 Magnesium 2.1 - Problems (1) Chronic diastolic heart failure Current Visit: Yes Status: Acute Plan: Patient BP is on the low side. stop Imdur lower lasix to 20 mg daily continue Aldactone 25 mg daily continue to monitor. (2) Atrial fibrillation Current Visit: No Status: Acute Plan: continue Sotalol 40 mg BID continue Xarelto Qualifiers:
--- NOTE | 2024-06-17 16:48 | RAD REPORT ---
EXAMINATION: XR Ankle Right 2 View CLINICAL INDICATION: Male, [address] [facility] MA[facility] Fracture TECHNIQUE: 3 view radiographs of the right ankle were obtained. COMPARISON: 06/11/2024 FINDINGS: Mildly displaced oblique distal metadiaphysis fibular fracture, stable in alignment. No sig nificant changes of healing yet. No other suspicious focal osseous lesion. Soft tissue swelling about the ankle. Small calcaneal spur. Mild degenerative changes along the mid foot articulations. IMPRESSION: Unchanged alignment of distal fibular fracture as above.
--- NOTE | 2024-06-17 16:53 | RAD REPORT ---
EXAM: XR Abdomen 1 View (KUB) HISTORY: [facility] MAIN constipation COMPARISON: None FINDINGS: Single view of the abdomen shows a nonspecific, nonobstructive bowel gas pattern. Mild stoo l burden throughout the colon most notable proximally. 1 cm radiodensity in the right ankle, may represent a renal calculus versus colonic content. Sequelae of transpedicular lumbar spine fusion jayne dware. The bones are unremarkable. IMPRESSION: Nonobstructive bowel gas pattern. Mild stool burden. Other findings as above.
[2024-06-18] MEDS: FUROSEMIDE 20 MG TABLET PO SCH (08:45)
--- NOTE | 2024-06-20 11:11 | EKG ---
Test Date: 2024-06-16 Test Time: 14:15:25 Claim Service Representative: REGLA MEASUREMENT RESULTS: Intervals: Rate: 56 IA: 338 QRSD: 112 QT: 444 QTc: 428 [place]: P: 57 IA: 338 QRS: -40 T: -27 INTERPRETIVE STATEMENTS: Sinus bradycardia with 1st degree AV block Left axis deviation Minimal voltage criteria for LVH, may be normal variant Abnormal ECG Compared to ECG 06/16/2024 14:14:37 Sinus arrhythmia no longer present ST (T wave) deviation no longer present Electronically Signed On 06-20-24 11:07:51 TRAFFIC CONTROL SUPERVISOR by Rolf Aguila
--- NOTE | 2024-06-20 11:11 | EKG ---
Test Date: 2024-06-16 Test Time: 14:14:37 Medical Lab Scientist: REGLA MEASUREMENT RESULTS: Intervals: Rate: 56 VT: 362 QRSD: 114 QT: 432 QTc: 416 [place]: P: 64 VT: 362 QRS: -41 T: -1 INTERPRETIVE STATEMENTS: Sinus bradycardia with sinus arrhythmia with 1st degree AV block Left axis deviation Minimal voltage criteria for LVH, may be normal variant Nonspecific ST and T wave abnormality Abnormal ECG Compared to ECG 06/13/2024 12:18:22 Left-axis deviation now present ST (T wave) deviation now present Sinus rhythm no longer present Left anterior fascicular block no longer present Myocardial infarct finding no longer present Electronically Signed On 06-20-24 11:07:53 GROUP CONTRACT ANALYST by Rolf Aguila
--- NOTE | 2024-06-20 23:44 | PN ---
Date of Progress Note: 06/20/2024 Time Of Service: 1:35 p.m. Subjective: Mr. Couch said he is doing well. Pain is better managed in the right foot where there is a fracture. The patient is also being followed by the Cardiology Service, Dr. Aguila, and has no new complaints so far, happy with therapy. Objective: Denies any ongoing fevers, chills. No significant myalgias, arthralgias, rash. No psych iatric issues. No other positives on the systems review. Physical Examination: Vital Signs: Blood pressure 114/59, pulse 61, respiratory rate 18, temperature 98.1, oxygen saturati on 98%. Weight 246 pounds, height 6 feet, BMI 33.0. General: Mr. Couch is sitting in a chair beside bed. HEENT: He is normocephalic, atraumatic. Sclerae anicteric. Oropharynx pink, moist. Neck: Supple. Chest: Clear. Extremities: Right lower extremity is in a boot from his fracture. Laboratory Studies: White blood cell count 7.7, hemoglobin 13.3, platelets 178. Blood sugars ranged from 121 to 182. Sodium 137, potassium 3.9, chloride 108, carbon dioxide 25, BUN 19, creatinine 0.9 4, magnesium 2.1, calcium 9.0. X-ray/imaging: KUB x-ray done on 06/17 showed nonobstructive bowel gas pattern. Mild stool burden i s noted. His ankle x-ray also done on 06/17/2024 shows unchanged alignment of distal fibular fractur e as noted and was mildly displaced with an oblique metaphysis, fibular fracture stable in alignment. No significant change of healing and this was compared to a study done on 06/11/2024. There is mil d degenerative change along the midfoot articulations and the patient is followed by Cardiology, Dr. Aguila. He saw the patient and his recommendation is adjust blood pressure medicine, stop Imdur, low er Lasix, continue Aldactone, sotalol 40 mg twice daily, and Xarelto. Progress Made With Physical And Occupational Therapy: With physical therapy today, he completed gait training 250 feet with a knee scooter with supervision, also up and down 1 step with a knee scooter, wheelchair mobilization 250 feet independently. [id number] transfer and [id number] transfer d one with supervision to modified independence. With occupational therapy, perform a shower, was able to wash 10 of 10 body parts, still required supervision for safety wipe of his buttocks, and standin g well adhering to weightbearing status which is touchdown on the right foot. Stand up and shower wa s independent, wheelchair mobilization from his bedroom to shower. Assessment: Mr. Couch is an 78-year-old patient in the rehabilitation unit with symptomatic atrial fibrillation. He is followed by Cardiology, and blood pressure and heart rate are stable. He has c omorbidities of diabetes mellitus, dyslipidemia, congestive heart failure, dyslipidemia, hypertension , obstructive sleep apnea. Plan: We will continue with physical and occupational therapy, 3 hours a day, 5 of 7 days. We will continue with Tylenol for pain, Lipitor for dyslipidemia, Lasix for fluid management, Amaryl for his diabetes mellitus control along with sliding scale that is mild insulin sliding scale, Xarelto 20 mg daily for his atrial fibrillation, Betapace for heart rate control, Aldactone for fluid management, S enokot for constipation. Of course, continue with physical and occupational therapy, 3 hours a day, 5 of 7 days. LB/MODL Voice ID: [id number] Report ID: [id number]
--- NOTE | 2024-06-21 20:26 | PN ---
Date of Progress Note: 06/21/2024 Time Of Service: 1:45 p.m. Subjective: Mr. Couch is sitting in the room. The occupational therapist is working with him. Joshua escalera today, he had a nosebleed which was contained, likely because of his anticoagulation, Xarelto. He has no new complaints. Says the right foot where he has a boot is not causing much pain. Some m ild difficulty with his touchdown weightbearing status. Objective: No fevers, chills, nausea, vomiting. Again, mild nosebleed that is resolved. No rash or psychiatric complaints. No other complaints. Physical Examination: Vital Signs: Blood pressure is 97/57, pulse 55, respiratory rate of 16, temperature 97.8, oxygen sat uration 95%. Earlier today, blood pressure 116/62 and 115/65. General: Again, Mr. Couch is sitting in a chair beside bed. HEENT: He is normocephalic, atraumatic. Sclerae anicteric. Oropharynx moist. Neck: Supple. Chest: Clear. Extremities: The right foot is in a boot. No significant cyanosis or clubbing. Laboratory Studies: Blood sugars ranged from 105 to 145. X-ray/imaging: No new x-rays or imaging. Medications: His medications have been reviewed and are unchanged. Progress Made With Physical And Occupational Therapy: Today with physical therapy, he was able to co mplete multiple [id number]-bm-[id number] transfers and czkwc-[id number] transfers with modified independence, ambul ated in the parallel bars with contact guard assistance, supervision 40 feet twice with touchdown isidro ghtbearing in the right lower extremity. With occupational therapy, able to don and doff his boot on the right foot with independence and maintain touchdown weightbearing status as he worked on bilater al upper extremity exercises. Assessment: Mr. Couch is an 78-year-old patient in the rehabilitation unit with symptomatic atrial fibrillation. He has decreased mobility, decreased physical functioning, right leg fracture in a luís ot with touchdown weightbearing status, again decreased mobility, decreased physical functioning. He has mild CHF and is on diuretic. He has fibrillation, on Xarelto 20 mg at bedtime, diabetes mellitu s managed with Amaryl, dyslipidemia managed with Lipitor, and pain addressed with Tylenol. Comorbidities That Are Impacting Rehabilitation: As noted, he is on high dose Xarelto with risk of b leeding including nose bleed potentially when GI bleeds, will be carefully observed for that. His he moglobin, which is stable at 13.3, will be rechecked later in the week and prior to his discharge. O therwise, he will have to maintain touchdown weightbearing status perhaps around 6 weeks and make it very difficult as he is slightly heavier at 243 pounds, BMI 33, and 6 feet. However, the patient is working very well with therapy, following all commands appropriately and managing the touchdown weigh tbearing status as well. LB/MODL Voice ID: [id number] Report ID: [id number]
[2024-06-23 06:26] LABS: Absolute Basophils 0.1 K/uL (0-0.5); Absolute Eosinophils 0.4 K/uL (0-0.5); Absolute Lymphocytes (CBC) 0.7 K/uL (0.7-4.9); Absolute Monocytes 0.7 K/uL (0.1-1.3); Absolute Neutrophil 6.8 K/uL (1.8-8.0); Basophils % 0.8 % (0-1.3); Eosinophils % 4.9 % (0-4.4); Hematocrit 40.1 % (39.6-49.0); Hemoglobin 13.6 g/dL (13.6-17.9); Lymphocytes % 8.3 % (15.3-44.8); MCH 31.3 pg (27.0-35.0); MCHC 33.9 g/dL (32.0-36.0); MCV 92.4 fL (80-100); MPV 8.4 fL (7.6-11.3); Monocytes % 8.1 % (3.3-12.3); Neutrophils % 77.9 % (41.7-73.7); Nucleated Red Blood Cells % 0.1 % (0-0); Platelets 190 thou/uL (152-406); RBC Red Blood Cell Count 4.34 M/uL (4.33-5.43)
[2024-06-23 06:42] LABS: Albumin 2.7 g/dL (3.4-5.0); Anion Gap 7.3 mEq/L (5.0-15.0); Potassium 4.3 mEq/L (3.5-5.1); Prealbumin 15.8 mg/dL (20-40)
[2024-06-23] MEDS: ENSURE HIGH PROTEIN 237 ML CAN PO SCH (20:04)
--- NOTE | 2024-06-23 20:11 | PN ---
Date of Progress Note: 06/23/2024 Time Of Service: 2:15 p.m. Subjective: Mr. Couch is sitting in his room looking out of the window. He is very happy with his therapy so far. Says no significant pain in the right foot where he has a broken bone, his foot is in a boot. He is happy so far with his therapy. No additional nosebleeds, which he had a few days a go. Objective: No fevers, chills, nausea, vomiting. No myalgias, arthralgias. Mild pain in the back an d right hip where there will be a pain patch added, that is the only one change made today. Physical Examination: Vital Signs: Blood pressure 127/67, pulse 59, respiratory rate 16, temperature 98.5, oxygen saturati on 97%. General: Mr. Couch is sitting in chair. HEENT: He is normocephalic, atraumatic. Sclerae anicteric. Oropharynx pink and moist. Neck: Supple. Chest: Clear. Extremities: Right foot is in boot and denies any pain. He is able to maintain touchdown weightbear ing status as he mobilizes. Said he will work hard today, but he has no complaints about that. Laboratory Studies: White blood cell count 8.7, hemoglobin 13.6, platelets 190. Sodium 136, potassi um 4.3, chloride 107, carbon dioxide 26, BUN 19, creatinine 0.94, glucose ranged from 113-195. Calci um 8.7, magnesium 2.0. Albumin 2.7, prealbumin 15.8. X-ray/imaging: No new x-rays or imaging. Medications: Adjustment today is 2 lidocaine patches placed in the right hip where he says there is some pain. Otherwise, medications are unchanged and continued. Progress Made With Physical, Occupational Therapy: Today with physical therapy, he did complete toil et hygiene independently, independent with sit to stand transfers, self-propelled with his knee scoot er, which he has been using because of the status of not being able to put weight down on the right f oot which is in a boot. He did go from the room to bathroom with a knee scooter with independence. Also, he was able to ambulate 250 feet independently with the knee rover, ascended and descended 15 s teps with standby assistance using bilateral handrails on a posterior approach to ascend. Supine to sit transfers done independently. Car transfers simulated independently with the knee rover. Assessment: Mr. Couch is an 78-year-old patient in the rehabilitation unit with symptomatic atrial fibrillation who is doing well with that. He has decreased mobility, decreased physical functioning , fracture in the right lower extremity with a boot, he is touchdown weightbearing status and mobiliz ing with the knee rover. He has mild CHF and on diuretic. Fibrillation is addressed with Xarelto. Did have a nosebleed earlier. No more nosebleeds today and yesterday. Diabetes mellitus managed. D yslipidemia also managed. Pain managed with Tylenol. Plan: 1.We will continue with physical and occupational therapy. 2.Continue with all medications as noted including Xarelto and address pain with lidocaine patch in the right hip, Amaryl for his diabetes, Lasix for fluid management, Lipitor for dyslipidemia, Senokot for constipation, Zofran for nausea, Ensure High Protein for malnutrition. LB/MODL Voice ID: [id number] Report ID: [id number]
[2024-06-24 07:38] VITALS: BP 127/68; TEMP 98
[2024-06-24] MEDS ORDERED: LIDOCAINE 4% PATCH TOP SCH (14:30)
== END 2024-06-24 10:00 | disposition home health service (06) | DRG 308 ==
LOC: 5TH 17:10
PROVIDERS: ADMIT Psychiatry & Neurology Neurology with Special Qualifications in Child Neurology; ATTEND Psychiatry & Neurology Neurology with Special Qualifications in Child Neurology
DX: I48.91 Unspecified atrial fibrillation (principal); I50.33 Acute on chronic diastolic (congestive) heart failure; I20.1 Angina pectoris with documented spasm; I13.0 Hypertensive heart and chronic kidney disease with heart failure and stage 1 through stage 4 chronic kidney disease, or unspecified chronic kidney disease; N17.9 Acute kidney failure, unspecified; G47.33 Obstructive sleep apnea (adult) (pediatric); S82.831D Other fracture of upper and lower end of right fibula, subsequent encounter for closed fracture with routine healing; E66.9 Obesity, unspecified; E11.22 Type 2 diabetes mellitus with diabetic chronic kidney disease; N18.9 Chronic kidney disease, unspecified; Z79.01 Long term (current) use of anticoagulants; Z68.33 Body mass index [BMI] 33.0-33.9, adult
CPT/HCPCS: 36415; 74018; 80048; 81001; 82040; 82947; 83036; 83735; 84134; 85025; 87086; 87088; 93005; 94010; 97110; 97116; 97163; 97165; 97530; 97542; J7040; Q0162